=== PATIENT | female | born 1935 | race Caucasian/White ===

== ENCOUNTER 2017-02-20 06:50 | Emergency (ER) | payer MEDICARE ==
[~2017-02-20] VITALS: Ht 162.5 cm; Wt 90.7 kg
[~2017-02-20 06:50] MED LIST: ADVAIR 100/501 E1 INH; ADVAIR 250/501 EA; ADVAIR 250/501 EA INH; ALEVE220 MG PO; AMARYL4 MG PO; ANTIVERT/2525 MG PO; APRESOLINE25 MG PO; ASPIRIN81 M1 PO; ATENOLOL50 MG PO; AUGMENTIN 875875 MG PO; Aggrenox 25 MG-1 CER PO; BENTYL10 MG PO; BUSPAR5 MG PO; CALCIUM 600 W/V1 TAB PO; CARAFATE1 G1 PO; CIPRO250 MG PO; CIPRO500 MG PO; CIPROFLOXACIN500 MG PO; CLARITIN10 MG PO; CLINDAMYCIN150 MG PO; COLACE PO; COLACE100 MG PO; COREG6.25 MG PO; CORTISPORIN SUS10 ML OT; DARVOCET N 1001 TAB PO; DAYPRO600 M1 PO; DIFLUCAN150 MG PO; DOCUSATE SODIU100 M2 PO; DOXYCYCLINE100 M3 PO; DULERA 200 MCG8.8 GM IH; FERREX 150150 MG PO; FLEXERIL10 MG PO; FLUOXETINE20 M1 PO; FLUOXETINE20 MG PO; FUROSEMIDE20 MG PO; FUROSEMIDE40 MG PO; GABAPENTIN300 MG PO; GLUCOPHAGE1000 MG PO; GLUCOTROL10 MG PO; GLUCTESTSTRIP; GLYBURIDE5 MG PO; HYDRALAZINE HCL25 MG PO; HYDRALAZINE10 MG PO; HYDROCODONE BIT1 T11 PO; HYDROCORTISONE30 G2 T; Hydralazine Hyd25 MG PO; IMDUR30 MG PO; INSULATARD H100 U/ML SC; INSULIN; ISOSORBIDE DINI30 MG PO; KEFTAB500 MG PO; LANTUS100 U/ML SC; LASIX40 MG PO; LEVEMIR100 U/ML SC; LISINOPRIL/HCTZ1 TA3 PO; LISINOPRIL/HCTZ1 TA4 PO; LISINOPRIL5 MG PO; LORAZEPAM0.5 MG PO; LOSARTAN POTASS50 M1 PO; MACROBID100 M1 PO; METAMUCIL PO; METFORMIN HCL1000 MG PO; MICRO K10 MEQ PO; MICRONASE5 MG PO; MIDODRINE HCL5 M1 PO; MILLIPRED5 MG PO; MIRALAX17 GM/DOSE PO; NEURONTIN300 MG; NEURONTIN300 MG PO; NEXIUM40 MG PO; NORCO 325 MG-51 TAB PO; NOVOLIN R100 U/ML; NOVOLOG 70/30 M10 ML SC; NOVOLOG 70/30 SC; NOVOLOG FLEX100 U/ML SC; NOVOLOG MIX 70/10 ML SC; NYSTATIN CREAM15 GM T; OMEPRAZOLE20 MG PO; OXYCODONE HCL15 MG PO; PANTOPRAZOLE40 MG PO; POTASSIUM; PRAVACHOL20 MG PO; PRELONE15 MG/5 ML PO; PRILOSEC20 MG PO; PROTONIX TR40 M1 PO; PROZAC20 MG PO; RESTORIL30 MG PO; ROBAXIN750 MG PO; ROXICODONE5 MG PO; SIMVASTATIN20 MG PO; SONATA10 MG PO; SPIRIVA18 MCG IH; SYMBICORT1 AE1 INH; TENORMIN25 MG PO; TESSALON PERLE100 M1 PO; TESSALON PERLE200 MG PO; ULTRAM50 MG PO; VIBRAMYCIN100 MG PO; VICODIN 5/500 505 MG PO; VICODIN 500 MG-1 TAB PO; VITAMIN D33000 UNIT PO; WELLBUTRIN75 MG PO; XANAX0.25 MG PO; ZITHROMAX Z PA250 MG PO
[2017-02-20 07:40] LABS: BILIRUBIN NEGATIVE (NEGATIVE); BLOOD 1+ (NEGATIVE); CLARITY SL CLOUDY (CLEAR); COLOR YELLOW (YELLOW); GLUCOSE NEGATIVE (NEGATIVE); KETONE NEGATIVE (NEGATIVE); LEUKO ESTERASE NEGATIVE (NEGATIVE); NITRITE NEGATIVE (NEGATIVE); UROBILINOGEN 0.2 E.U./dl (0.2-1.0)
[2017-02-20 08:08] LABS: BACTERIA TRACE; RBC 16-20 rbc/hpf (0-2)
[2017-02-20 08:09] LABS: EPITHELIAL CELLS 16-20
== END 2017-02-20 09:27 | disposition home or self-care (01) ==
LOC: ED 06:50
PROVIDERS: Emergency Medicine
DX: S40.011A Contusion of right shoulder, initial encounter (principal); E11.65 Type 2 diabetes mellitus with hyperglycemia; E11.22 Type 2 diabetes mellitus with diabetic chronic kidney disease; I12.9 Hypertensive chronic kidney disease with stage 1 through stage 4 chronic kidney disease, or unspecified chronic kidney disease; N18.3 Chronic kidney disease, stage 3 (moderate); J44.9 Chronic obstructive pulmonary disease, unspecified; Z79.4 Long term (current) use of insulin; W18.39XA Other fall on same level, initial encounter; Y93.89 Activity, other specified; Y92.89 Other specified places as the place of occurrence of the external cause; Y99.8 Other external cause status

== ENCOUNTER 2017-03-06 00:57 | Inpatient (IN) | payer MEDICARE ==
[2017-03-06] VITALS (7 sets, daily range): BP systolic 164–192; BP diastolic 67–92
[~2017-03-06] VITALS: Ht 167.6 cm; Wt 81.0 kg
--- NOTE | ~2017-03-06 | WRIGHTHP ---
[place], [place] PATIENT HISTORY AND PHYSICAL EXAM NAME: JONO GARCIA [facility] #: [id number] UNIT #: [id number] ROOM: 515 DOCTOR: MADELYN MARTINEZ MD BIRTHDATE: [birth year] DOS: 03/06/2017 HISTORY OF PRESENT ILLNESS: The patient is an 81-year-old female sent over to the Emergency Department at [facility] for increased shortness of breath. She was found unresponsive and pale and diaphoretic with a blood sugar of 20. In the hospital, the patient woke up with treatment and on the chest x-ray she was found to have left lower lobe atelectasis and pneumonia and leukocytosis with white cell count 13,700 and she was recommended for admission and further management. After admission, the patient is more awake and alert and her breathing is improving. No complaints of chest pain. No other GI or urinary symptoms. REVIEW OF SYSTEMS: LUNGS: Some increasing shortness of breath. GASTROINTESTINAL: No nausea, vomiting, diarrhea or constipation. CARDIOVASCULAR: No chest pains or palpitations. FAMILY HISTORY: Noncontributory. HOME MEDICATIONS: Not known at this time. The patient used to take furosemide and Coreg, which have been continued from previous records. Nursing staff is going to call the patient's pharmacy when it opens and get the medication list. ALLERGIES: Known allergies to CEPHALOSPORINS. PHYSICAL EXAMINATION: GENERAL: Awake, alert, not a good historian, in visible distress, generalized weakness. HEENT AND NECK: Extraocular movements are intact. Sclerae are anicteric. Oral mucosa is moist and clean. No obvious facial weakness. Neck is supple without any lymphadenopathy. No thyromegaly. No JVD. No carotid arterial bruits. LUNGS: Clear to auscultation. No wheezing. No rhonchi. CARDIOVASCULAR SYSTEM: Heart rate is regular in rate and rhythm. S1 and S2 normally audible. No significant murmur or any other abnormal cardiac sounds. ABDOMEN: Soft, nontender. No obvious organomegaly. Bowel sounds are present. No obvious herniation. EXTREMITIES: Without significant cyanosis or edema. Warm to touch. CENTRAL NERVOUS SYSTEM: Alert and oriented x 3. Cranial nerves II-XII are intact. Speech is normal. The patient is able to move all extremities. Normal muscle strength. Deep tendon reflexes are equal on both sides. Plantars were downgoing. LABORATORY DATA: Blood sugar now 122, BUN and creatinine 45 and 1.7. White cell count of 14,000, hemoglobin 7.9. IMPRESSION: 1. The patient presenting with acute left lower lobe pneumonia with atelectasis and leukocytosis with mental status change. She is being treated with IV Zosyn, which she was given also in the Emergency Department. The patient appears to be improving. [place], [place] PATIENT HISTORY AND PHYSICAL EXAM [facility]: [id number] #: [id number] ROOM: [facility] DOCTOR: JUAN KRAUSE,MADELYN Palafox BIRTHDATE: [birth year] 2. Type 2 diabetes mellitus with acute hypoglycemia and mental status change. The patient's blood sugars to be monitored and she will be kept on a no concentrated sweet diet with sliding scale of regular insulin. 3. Chronic kidney disease stage 3B. Serum electrolytes, BUN and creatinine to be monitored. 4. Benign essential hypertension. Blood pressure is to be monitored and treated. We still do not have a complete list of her home medications. 5. Mixed hyperlipidemia, to be followed and treated. 6. Chronic adult failure to thrive with multiple falls and generalized weakness. MADELYN MARTINEZ MD CM:HISPHYS:PATIENT HISTORY AND PHYSICAL EXAMINATION 5 4 MADELYN MARTINEZ MD 03/06/17944 interface
--- NOTE | ~2017-03-06 | DS ---
[place], [place] DISCHARGE SUMMARY NAME: JONO GARCIA [facility] #: [id number] UNIT #: [id number] ROOM: 515 DOCTOR: MADELYN MARTINEZ MD BIRTHDATE: [birth year] DOS: 03/09/2017 DISCHARGE DIAGNOSES: 1. Acute hypoglycemia, resolved. 2. Type 2 diabetes mellitus. 3. Left lower lung atelectasis and pneumonia, treated. 4. Benign essential hypertension. 5. Mixed hyperlipidemia. 6. Adult failure to thrive with multiple falls and generalized weakness. 7. Very hard of hearing. 8. Diabetic nephropathy, stage 4. HOSPITAL COURSE: The patient presented to the Emergency Department unresponsive and diaphoretic with blood sugar of 20 and she was found to have a left lower lobe atelectasis and pneumonia with leukocytosis with white cell count of 13,700. The patient was admitted and treated with IV Zosyn and she is more awake and alert, but very hard of hearing. The patient appears to have achieved maximum benefit from this admission for discharge back to longterm today. 1. Type 2 diabetes mellitus with hypoglycemia. I stopped her Lantus insulin 60 units and her blood sugars have improved. I will send her back only on 20 units of Lantus insulin and she will be kept on no concentrated sweet diet. 2. Chronic kidney disease stage 4 and diabetic nephropathy, stable. 3. Mixed hyperlipidemia, followed and treated. 4. Benign essential hypertension. Blood pressure is being monitored and controlled. 5. Adult failure to thrive and recurrent falls. We are taking fall precautions. LABORATORY DATA: BUN and creatinine of 41 and 2.1 at discharge. Normal serum electrolytes. Hemoglobin 7.9 and stable. The patient has anemia of chronic disease and chronic kidney failure. DISCHARGE MANAGEMENT: Glimepiride 2 mg daily, gabapentin 300 mg at bedtime, simvastatin 20 mg a day, Imdur 30 mg a day, furosemide 60 mg a day, Lantus insulin 20 units subQ daily, hydralazine 100 mg b.i.d., Ferrex 150 mg daily, Carafate 1 gram b.i.d., Cymbalta 60 mg a day, Coreg 6.25 mg b.i.d., aspirin 81 mg a day, DuoNeb every 4 hours as needed, Vicodin 5/325 mg t.i.d. p.r.n. for pain, Augmentin 875 mg twice a day for 5 days, then to be stopped. [place], [place] DISCHARGE SUMMARY NAME: JONO GARCIA UNIT #: [id number] ROOM: [facility] DOCTOR: MADELYN MARTINEZ MD BIRTHDATE: [birth year] MADELYN MARTINEZ MD CM:DISCHARG 17 30 MADELYN MARTINEZ MD 03/09/172030 interface
--- NOTE | ~2017-03-06 | PR ---
[place], [place] PROGRESS NOTE [id number] UN[facility] #: [id number] ROOM: 515 DOCTOR: MADELYN MARTINEZ MD BIRTHDATE: [birth year] DOS: 03/08/2017 SUBJECTIVE: The patient says she is starting to feel much better. OBJECTIVE: GENERAL APPEARANCE: The patient is alert and oriented x 3, in no visible distress. VITAL SIGNS: Blood pressure 130/83, heart rate 87 beats, breathing 20 times per minute, temperature 98.7 degrees Fahrenheit. HEENT AND NECK: Exam within normal limits. CARDIOVASCULAR SYSTEM: Heart rate is regular in rate and rhythm. S1 and S2 normally audible. LUNGS: Clear to auscultation. ABDOMEN: Soft, nontender. No obvious organomegaly. Bowel sounds are present. EXTREMITIES: Without significant cyanosis or edema. IMPRESSION: 1. Hypoglycemia, resolved. Blood sugars are better controlled. Amaryl restarted. 2. Left lower lobe atelectasis and pneumonia, being treated with antibiotics. The patient is clinically improving. Blood sugars are now ranging between 76-280, being followed closely. 3. Benign essential hypertension, being treated. Blood pressure is being monitored and controlled. 4. Mixed hyperlipidemia, treated. 5. Chronic adult failure to thrive and multiple falls and generalized weakness. The patient has mentioned possible hospice consult. MADELYN MARTINEZ MD CM:PNTRANS [phone] MADELYN MARTINEZ MD 03/09/17 1130 interface
--- NOTE | ~2017-03-06 | PR ---
[place], [place] PROGRESS NOTE NAME: JONO GARCIA [facility] #: [id number] UNIT #: [id number] ROOM: 515 DOCTOR: CHARLES BATISTA MD BIRTHDATE: [birth year] DOS: 03/07/2017 SUBJECTIVE: The patient is doing fine without any complaints this morning. She did go down for a chest x-ray which did not show any new pathology. The patient denies having any fever, any chills. OBJECTIVE: VITAL SIGNS: Graphic trend shows a pressure 197/67, pulse of 73, respirations 18, temperature 97.7. LUNGS: Diminished breath sounds, clear. HEART: Regular. ABDOMEN: Obese, soft, nontender. EXTREMITIES: Without any edema. ASSESSMENT AND PLAN: 1. Hypoglycemia. The patient's blood sugars are in the high 100s, low dose Amaryl will be restarted. 2. Possibility of urinary tract infection. Urine culture is pending. 3. Left lower lobe atelectasis with leukocytosis, possible pneumonia underneath it. The patient is on antibiotics. The chest x-ray repeat is clearer, should be able to go home in the morning. CHARLES BATISTA MD CM:PNTRANS [id number] CHARLES BATISTA MD 03/07/17 1316 interface
--- NOTE | 2017-03-06 01:13 | NUR ---
PATIENT PLACED ON A BEDPAN BUT WAS UNABLE TO URINATE. WILL CONTINUE TO MONITOR.
[2017-03-06 01:22] LABS: BASO % 0.1 % (0.0-1.0); EOS # 0.1 10*3/uL (0.0-0.4); EOS % 0.9 % (1.0-4.0); HEMATOCRIT 24.9 % (37.0-47.0); HEMOGLOBIN 7.9 g/dl (12.0-16.0); LYMPH # 0.7 10*3/uL (1.3-4.4); LYMPH % 4.7 % (27.0-41.0); MEAN CELL VOLUME 89.6 fl (81.0-99.0); MEAN CORPUSCULAR HGB 28.4 pg (27.0-31.0); MEAN CORPUSCULAR HGB CONC 31.7 g/dl (33.0-37.0); MEAN PLATELET VOLUME 9.8 fl (9.6-12.3); MONO # 0.7 10*3/uL (0.1-1.0); MONO % 5.3 % (3.0-9.0); NEUT # 12.3 10*3/uL (2.3-7.9); NEUT % 88.6 % (47.0-73.0); PLATELET COUNT AUTOMATED 227 10*3/uL (130-400); RED BLOOD COUNT 2.78 10*6/uL (4.10-5.10); RED CELL DISTRI WIDTH 15.6 % (0-14.5); WHITE BLOOD COUNT 13.9 10*3/uL (4.8-10.8)
[2017-03-06 01:38] LABS: BILIRUBIN NEGATIVE (NEGATIVE); BLOOD TRACE-INTACT (NEGATIVE); COLOR YELLOW (YELLOW); GLUCOSE NEGATIVE (NEGATIVE); KETONE NEGATIVE (NEGATIVE); LEUKO ESTERASE NEGATIVE (NEGATIVE); NITRITE NEGATIVE (NEGATIVE); PH 6.5 (5.0-9.0); UROBILINOGEN 0.2 E.U./dl (0.2-1.0)
[2017-03-06 01:40] LABS: ALBUMIN 2.5 gm/dl (3.1-4.5); ALKALINE PHOSPHATASE 91 U/L (45-117); BUN 45 mg/dl (7-24); CHLORIDE 98 mmol/L (98-107); CREATININE 1.75 mg/dL (0.55-1.02); POTASSIUM 4.2 mmol/L (3.5-5.1); SGOT/AST 17 IU/L (3-35); SGPT/ALT 21 U/L (12-78); SODIUM 136 mmol/L (136-145); TOTAL PROTEIN 6.8 gm/dL (6.4-8.2)
[2017-03-06 01:42] LABS: TROPONIN I < 0.015 ng/ml (<0.045)
[2017-03-06 01:44] LABS: CLARITY SL CLOUDY (CLEAR); EPITHELIAL CELLS 45-50
[2017-03-06 01:45] LABS: BACTERIA TRACE
--- NOTE | 2017-03-06 02:45 | NUR ---
IV IN LEFT HAND IS PAINFUL DURING SLOW IV PUSH. IV SITE DISCONTINUED.
--- NOTE | 2017-03-06 02:54 | NUR ---
2X IV ATTEMPT WITH NO SUCCESS. ANOTHER NURSE IS ATTEMPTING IV AT THIS TIME.
--- NOTE | 2017-03-06 03:20 | NUR ---
2 NURSES UNABLE TO GET IV ACCESS.
--- NOTE | 2017-03-06 03:24 | NUR ---
[facility] NURSE WILL COME DOWN AND ATTEMPT IV ACCESS.
--- NOTE | 2017-03-06 04:56 | NUR ---
Time: A 81 year old F admitted to 5E under services of DR. JUAN KRAUSE,MADELYN Kat Pt. arrived via bed from ER. Chief complaint: HYPOGLYCEMIA. STACEY KENT
--- NOTE | 2017-03-06 05:06 | NUR ---
DR. MARTINEZ MADE AWARE OF NEW PT. NEW ORDERS RECIEVED. WILL CONINUE TO MONITOR PT
--- NOTE | 2017-03-06 08:30 | NUR ---
WELLNESS AMBASSADOR VS. STATES SHE LIVES AT [facility] AND PLANS TO RETURN. WILL CHECK WITH [facility] FOR RETURN NEEDS.
--- NOTE | 2017-03-06 10:30 | NUR ---
DR MOFFETT CALLED TO REPORT MED REC HAD BEEN VERIFIED.
[2017-03-06] MEDS ORDERED: PRAVACHOL40 MG PO (11:10)
[2017-03-06] MEDS ORDERED: ASPIR LOW81 MG PO (11:10)
[2017-03-06] MEDS ORDERED: DOCUSATE SODIU100 M2 PO (11:11)
[2017-03-06] MEDS ORDERED: CYMBALTA60 MG PO (11:12)
[2017-03-06] MEDS ORDERED: LASIX40 MG PO (11:13)
[2017-03-06] MEDS ORDERED: HYDRALAZINE HC100 MG PO (11:14)
[2017-03-06] MEDS ORDERED: K-TAB10 MEQ PO (11:14)
[2017-03-06] MEDS ORDERED: LANTUS SOL100 UNIT/1 SC (11:17)
[2017-03-06] MEDS ORDERED: HYDROCODON-ACE1 EACH PO (11:18)
[2017-03-06] MEDS ORDERED: HUMALOG100 UNIT/1 SQ (11:26)
--- NOTE | 2017-03-06 11:40 | NUR ---
PT HAD BLOOD SUGAR OF 56, PT GIVEN ORANGE JUICE AND DUONG CRACKERS.
--- NOTE | 2017-03-06 11:55 | NUR ---
BLOOD SUGAR RECHECKED AT 55. 25 GM/50 ML DEXTROSE GIVEN IV. PATIENT ALSO HAD HER LUNCH IN FRONT OF HER AT THIS TIME.
--- NOTE | 2017-03-06 13:33 | NUR ---
Patient is LTC at [facility] and can return when medically stable for discharge.
--- NOTE | 2017-03-06 14:46 | NUR ---
PHYSICAL THERAPY PAtient too fatigued for PT this date. Caase discussed with nurse and paling agrees. PAtient is dyspneic at rest. Will check patients status tomorrow. Thank you for this referral. Jennifer Hale,PT
--- NOTE | 2017-03-06 16:30 | NUR ---
BLOOD SUGAR 188, INSULIN HELD.
--- NOTE | 2017-03-06 18:00 | NUR ---
BLOOD SUGAR 176, INSULIN HELD.
[2017-03-07] VITALS: BP 170/88
[2017-03-07 06:46] LABS: CREATININE 1.84 mg/dL (0.55-1.02); POTASSIUM 4.2 mmol/L (3.5-5.1)
[2017-03-07 06:48] LABS: BASO % 0.3 % (0.0-1.0); EOS # 0.2 10*3/uL (0.0-0.4); EOS % 2.1 % (1.0-4.0); HEMATOCRIT 25.5 % (37.0-47.0); HEMOGLOBIN 8.2 g/dl (12.0-16.0); LYMPH # 1.2 10*3/uL (1.3-4.4); LYMPH % 12.5 % (27.0-41.0); MEAN CELL VOLUME 88.2 fl (81.0-99.0); MEAN CORPUSCULAR HGB 28.4 pg (27.0-31.0); MEAN CORPUSCULAR HGB CONC 32.2 g/dl (33.0-37.0); MEAN PLATELET VOLUME 9.6 fl (9.6-12.3); MONO # 1.1 10*3/uL (0.1-1.0); MONO % 11.4 % (3.0-9.0); NEUT # 7.1 10*3/uL (2.3-7.9); NEUT % 73.3 % (47.0-73.0); PLATELET COUNT AUTOMATED 232 10*3/uL (130-400); RED BLOOD COUNT 2.89 10*6/uL (4.10-5.10); RED CELL DISTRI WIDTH 15.2 % (0-14.5); WHITE BLOOD COUNT 9.7 10*3/uL (4.8-10.8)
[2017-03-07 08:00] VITALS: BP 197/69
--- NOTE | 2017-03-07 11:10 | NUR ---
PRN PAIN MED GIVEN FOR PT REPORT 4/10 HEADACHE.
[2017-03-07 12:00] VITALS: BP 188/74
--- NOTE | 2017-03-07 12:10 | NUR ---
PRN PAIN MED EFFECTIVE, PT DENIES PAIN.
--- NOTE | 2017-03-07 14:47 | NUR ---
PHYSICAL THERAPY Initial PT eval done at bedside this morning. Mod level complexity eval #87846. Please see eval for status. POC to include pt ed; ther ex; balance/transfer/gait training with eventual dc back to alf. Maegan Gupta, PT
--- NOTE | 2017-03-07 15:12 | NUR ---
faxed progress notes and updates to Tonya at [facility] for review per her request. Patient is LTC and can return when medically stable for discharge.
[2017-03-07 16:00] VITALS: BP 179/67
--- NOTE | 2017-03-07 19:43 | NUR ---
PATIENT IS RESTING IN BED. PATIENT IS [place] AND WAS CONFUSED OCCASIONALLY ON ASSESSMENT. PATIENT WAS A&OX2 AND AMBULATORY +1 ASSIST. PATIENT DENIES ANY PAIN, DISCOMFORT, OR SOB ON ASSESSMENT. PATIENT IS RECEIVING 2LPM VIA NC. PATIENT HAS NO FURTHER REQUESTS AT THIS TIME, CALL LIGHT IS WITHIN REACH, HOB ELEVATED. SEE ASSESSMENT.
[2017-03-07 20:00] VITALS: BP 175/68
[2017-03-08] VITALS: BP 158/73
--- NOTE | 2017-03-08 02:29 | NUR ---
PATIENT IS RESTING IN BED ON HER RIGHT SIDE. PATIENT IS ALERT AND ORIENTED TO PERSON AND PLACE. PATIENT IS [place], BUT DOES RESPOND APPROPRIATELY. PATIENT DENIES ANY PAIN, DISCOMFORT OR SOB AT THIS TIME. PATIENT IS RECEIVING 2LPM VIA NC. PATIENT HAS NO FURTHER REQUESTS AT THIS TIME. CALL LIGHT IS WITHIN REACH. SEE ASSESSMENT.
--- NOTE | 2017-03-08 05:50 | NUR ---
PATIENT GIVEN NORCO PER PT REQUEST FOR A HEADACHE RATED A 6/10. WILL CONTINUE TO MONITOR AND REASSESS, CALL LIGHT IS WITHIN REACH.
[2017-03-08 06:08] LABS: BASO # 0.1 10*3/uL (0.0-0.1); BASO % 0.6 % (0.0-1.0); EOS # 0.2 10*3/uL (0.0-0.4); EOS % 2.1 % (1.0-4.0); HEMATOCRIT 28.8 % (37.0-47.0); HEMOGLOBIN 8.8 g/dl (12.0-16.0); LYMPH # 1.6 10*3/uL (1.3-4.4); LYMPH % 15.3 % (27.0-41.0); MEAN CELL VOLUME 90.3 fl (81.0-99.0); MEAN CORPUSCULAR HGB 27.6 pg (27.0-31.0); MEAN CORPUSCULAR HGB CONC 30.6 g/dl (33.0-37.0); MEAN PLATELET VOLUME 9.4 fl (9.6-12.3); MONO # 1.1 10*3/uL (0.1-1.0); MONO % 10.7 % (3.0-9.0); NEUT # 7.2 10*3/uL (2.3-7.9); PLATELET COUNT AUTOMATED 275 10*3/uL (130-400); RED BLOOD COUNT 3.19 10*6/uL (4.10-5.10); RED CELL DISTRI WIDTH 15.3 % (0-14.5); WHITE BLOOD COUNT 10.1 10*3/uL (4.8-10.8)
[2017-03-08 06:35] LABS: CREATININE 2.12 mg/dL (0.55-1.02); POTASSIUM 4.3 mmol/L (3.5-5.1)
--- NOTE | 2017-03-08 07:48 | NUR ---
Shift chart check completed.
--- NOTE | 2017-03-08 07:49 | NUR ---
PT STATES NORCO EFFECTIVE FOR HEADACHE.
[2017-03-08 08:00] VITALS: BP 143/68
[2017-03-08 12:00] VITALS: BP 130/83
--- NOTE | 2017-03-08 15:49 | NUR ---
ASSUMED CARE OF PATIENT. NO NEEDS NOTED AT THIS TIME. REQUESTING BACK ON BIPAP.
[2017-03-08 16:00] VITALS: BP 170/71
--- NOTE | 2017-03-08 19:30 | NUR ---
PATIENT IS AWAKE AND ALERT IN BED ON THEIR LEFT SIDE. PATIENT HAS OCCASIONAL CONFUSION TO LOCATION AND IS [place] UPON ASSESSMENT. PATIENT DENIES ANY PAIN, DISCOMFORT, OR SOB. PATIENT WAS WEENED OFF OF OXYGEN AND IS NOW RA AT 93% PER PULSE OX. PATIENT CAN AMBULATE WITH WALKER +1 ASSIST. BED ALARM ACTIVATED. NO FURTHER REQUESTS AT THIS TIME. CALL LIGHT IS WITHIN REACH. SEE ASSESSMENT
[2017-03-08 20:00] VITALS: BP 185/66
[2017-03-09 06:22] LABS: BASO # 0.1 10*3/uL (0.0-0.1); BASO % 0.6 % (0.0-1.0); EOS # 0.2 10*3/uL (0.0-0.4); EOS % 1.9 % (1.0-4.0); HEMATOCRIT 25.5 % (37.0-47.0); HEMOGLOBIN 7.9 g/dl (12.0-16.0); LYMPH # 1.6 10*3/uL (1.3-4.4); LYMPH % 15.3 % (27.0-41.0); MEAN CELL VOLUME 88.9 fl (81.0-99.0); MEAN CORPUSCULAR HGB 27.5 pg (27.0-31.0); MEAN PLATELET VOLUME 9.8 fl (9.6-12.3); MONO % 9.8 % (3.0-9.0); NEUT # 7.5 10*3/uL (2.3-7.9); PLATELET COUNT AUTOMATED 259 10*3/uL (130-400); RED BLOOD COUNT 2.87 10*6/uL (4.10-5.10); RED CELL DISTRI WIDTH 15.4 % (0-14.5); WHITE BLOOD COUNT 10.4 10*3/uL (4.8-10.8)
[2017-03-09 06:38] LABS: CREATININE 2.13 mg/dL (0.55-1.02); POTASSIUM 4.1 mmol/L (3.5-5.1)
--- NOTE | 2017-03-09 07:24 | NUR ---
Shift chart check completed.
[2017-03-09 08:00] VITALS: BP 158/62
[2017-03-09 12:00] VITALS: BP 153/59
[2017-03-09 16:00] VITALS: BP 168/68
[2017-03-09] MEDS ORDERED: AUGMENTIN 875-875 MG PO (16:15)
--- NOTE | 2017-03-09 17:18 | NUR ---
REPORT CALLED TO [facility]. IV IN LEFT ARM REMOVED, DRESSING APPLIED. PT AWARE OF DISCHARGE TONIGHT. ATTEMPTED TO CALL SON TO NOTIFY AND LINE HAS BEEN BUSY, WILL ATTEMPT TO NOTIFY PRIOR TO DISCHARGE
--- NOTE | 2017-03-09 17:44 | NUR ---
DISCHARGE INSTRUCTIONS SENT WITH PATIENT TO [facility]. PT TOO HARD OF HEARING TO COMPLETLY UNDERSTAND DISCHARGE INSTRUCTIONS. AWAIT AMBULANCE TO TRANSPORT PATIENT TO [facility] AT 1800
--- NOTE | 2017-03-09 18:00 | NUR ---
RUDY PICKED PATIENT UP FOR TRANSFER TO [facility]
== END 2017-03-09 16:00 | disposition other institution (70) | DRG 637 ==
LOC: ED 00:57 → EDHOLD 02:17 → 5E 02:17
PROVIDERS: Student in an Organized Health Care Education/Training Program; ADMIT Internal Medicine
DX: E11.649 Type 2 diabetes mellitus with hypoglycemia without coma (principal); J18.1 Lobar pneumonia, unspecified organism; N18.4 Chronic kidney disease, stage 4 (severe); J44.0 Chronic obstructive pulmonary disease with (acute) lower respiratory infection; E11.21 Type 2 diabetes mellitus with diabetic nephropathy; J98.11 Atelectasis; E11.22 Type 2 diabetes mellitus with diabetic chronic kidney disease; I12.9 Hypertensive chronic kidney disease with stage 1 through stage 4 chronic kidney disease, or unspecified chronic kidney disease; Z51.5 Encounter for palliative care; E78.2 Mixed hyperlipidemia; Z66 Do not resuscitate; R62.7 Adult failure to thrive; Z91.81 History of falling; Z88.1 Allergy status to other antibiotic agents; Z87.01 Personal history of pneumonia (recurrent); Z87.440 Personal history of urinary (tract) infections; Z90.49 Acquired absence of other specified parts of digestive tract; Z79.899 Other long term (current) drug therapy; Z79.82 Long term (current) use of aspirin; Z79.84 Long term (current) use of oral hypoglycemic drugs; Z79.4 Long term (current) use of insulin

== ENCOUNTER 2017-07-10 14:58 | Inpatient (IN) | payer MEDICARE ==
[~2017-07-10] VITALS: Ht 157.4 cm; Wt 81.6 kg
--- NOTE | ~2017-07-10 | PR ---
[place], [place] PROGRESS NOTE NAME: JONO GARCIA [facility] #: [id number] UNIT #: [id number] ROOM: 505 DOCTOR: SEAN RBUSH DPM BIRTHDATE: [birth year] DOS: 07/18/2017 The patient presently admitted under the care of Dr. Maisha Chang and undergoing treatment for shortness of breath. Blood pressure 154/98, heart rate 76 beats per minute, breathing 18 times per minute, temperature 98.2 degrees Fahrenheit. Standard exam except for generalized weakness. The patient is also very hard of hearing and obesity. IMPRESSION: 1. Mild trilobular pneumonia, being treated with antibiotics. Dr. Finch, recovery analyst, performed a bronchoscopy this morning. 2. Blood cultures positive for Staphylococcus hominis, but negative and repeat cultures. The patient was treated with vancomycin intravenously. 3. Type 2 diabetes mellitus. Blood sugars were elevated, but being treated and they are being monitored. SEAN BRUSH DPM CM:PNTRANS [phone] SEAN BRUSH DPM 07/18/17 2344 interface
--- NOTE | ~2017-07-10 | PR ---
[place], [place] PROGRESS NOTE NAME: JONO GARCIA UNIT #: [id number] ROOM: 505 DOCTOR: GASTON HOUGH MD BIRTHDATE: [birth year] DOS: 07/20/2017 SUBJECTIVE: The patient noted comfortable at this time, resting on the bed. The coughing has been improving progressively. There were symptoms of chest pain. The patient was ordered a chest x-ray, PA and lateral view, but refusing to have the x-ray done for the patient, PA lateral view. She has been sitting with the family member this morning on the chair for the patient and communicating with them well. The vital signs for the patient she had not reported any symptoms of coughing or sputum expectoration at this time. There are symptoms of chest pain. OBJECTIVE: VITAL SIGNS: For the patient which are recorded showed normal temperature, respiratory rate 18, heart rate 69-78, blood pressure 156/60. The pulse oxygen saturation on 2.5 liters nasal cannula, 1 liter was 95% saturation. HEENT: Showed no new change. Hard of hearing. CARDIOVASCULAR: S1, S2 is audible. LUNGS:. The patient was noted without any wheeze or crackle at the present time. ABDOMEN: Soft, nontender. EXTREMITIES: Without any acute edema. LABORATORY DATA: Cultures of the bronchial washing shows a normal hari. Chest x-ray that was done this morning, the patient was reviewed, shows continued improvement of the infiltration of the lungs bilaterally. IMPRESSION: 1. The patient with resolving acute respiratory failure. The patient has acute pneumonia with current medical management. ____ debility noted. 2. Senile hearing loss. PLAN OF MANAGEMENT: No changes in the plan of care for the patient at this time will be needed. Physical therapy, occupation therapy. The patient would be suggested about group home facility placement at the present time. [place], [place] PROGRESS NOTE NAME: JONO GARCIA UNIT #: [id number] ROOM: 505 DOCTOR: GASTON HOUGH MD BIRTHDATE: [birth year] GASTON LENZ MD CM:PNTRANS [phone] GASTON FREY MD 07/21/17 0506 interface
--- NOTE | ~2017-07-10 | PR ---
[place], [place] PROGRESS NOTE [id number] #: [id number] ROOM: 505 DOCTOR: CHARLES BATISTA MD BIRTHDATE: [birth year] DOS: SUBJECTIVE: The patient is sleeping in bed, woke up and did answer questions appropriately. She appeared to be short of breath and with audible rhonchi. OBJECTIVE: VITAL SIGNS: Graphic trend shows a pressure of 155/85, pulse of 75, respirations 20, temperature 98. LUNGS: Diminished breath sounds, scattered wheezes and rhonchi. HEART: Regular. ABDOMEN: Obese. EXTREMITIES: Without any edema. LABORATORY DATA: Sputum culture, normal hari. Repeat blood cultures have come back negative. Chest x-ray shows multilobar pneumonia without much improvement and small right pleural effusion. ASSESSMENT AND PLAN: 1. Multilobar pneumonia on IV antibiotics without much improvement over the last several days. Dr. Finch was informed for possible bronchoscopy to get a better culture. 2. Staph hominis in the blood. This appears to have cleared since the repeat blood cultures have been negative, hopefully discontinue vancomycin soon. 3. Type 2 diabetes mellitus, insulin-dependent. Blood sugars are on the high side. We will continue current medications right now. CHARLES BATISTA MD CM:PNTRANS 9 7 CHARLES BATISTA MD 07/17/17916 interface
--- NOTE | ~2017-07-10 | PR ---
[place], [place] PROGRESS NOTE NAME: JONO GARCIA [facility] #: [id number] UNIT #: [id number] ROOM: 505 DOCTOR: MADELYN MARTINEZ MD BIRTHDATE: [birth year] DOS: 07/20/2017 SUBJECTIVE: The patient is unable to walk, otherwise she is feeling better. OBJECTIVE: VITAL SIGNS: Blood pressure 154/84, heart rate of 65 beats per minute, breathing 18 times per minute, afebrile. IMPRESSION AND PLAN: 1. The patient with acute exacerbation of chronic obstructive pulmonary disease, increased shortness of breath, is being treated. Dr. Finch is also following. 2. Bilateral lower lobe infiltrates and pneumonia, being treated with antibiotics, clinically improving. 3. Old age and adult failure to thrive. The patient is unable to walk properly, is undergoing physical therapy and waiting for transfer to rehabilitation. 4. Type 2 diabetes mellitus. Blood sugars are being monitored and treated. 5. Staphylococcus hominis in blood cultures, cleared after treatment with vancomycin. MADELYN MARTINEZ MD CM:PNTRANS [phone] MADELYN MARTINEZ MD 07/20/17 1905 interface
--- NOTE | ~2017-07-10 | PR ---
[place], [place] PROGRESS NOTE NAME: JONO GARCIA UNIT #: [id number] ROOM: 505 DOCTOR: GASTON HOUGH MD BIRTHDATE: [birth year] DOS: 07/19/2017 PULMONARY PROGRESS NOTE SUBJECTIVE: The patient has been noted comfortable at this time. Bronchoscopy done yesterday with reduction in symptoms of shortness of breath was noted. The patient has not been noted symptoms of chest pain or any hemoptysis. Denies symptoms of abdominal pain. The communication of the patient noted limited because of the patient's hearing loss. Senile hearing loss which was partial. OBJECTIVE: VITAL SIGNS: Normal temperature, respiratory rate 20, heart rate 64, blood pressure 144/84. The pulse oxygen saturation on 2.5 liters cannula 93% saturation recorded. HEENT: No acute change. NECK: Supple. CARDIOVASCULAR: S1, S2 audible. LUNGS: Noted with moderate decreased breath sounds, no wheezing or crackles. ABDOMEN: Soft, nontender. EXTREMITIES: Without any acute edema. LABORATORY DATA: The culture of the bronchial washing noted normal hari. Gram stain, moderate white blood cell, few epithelial cells, rare gram-positive cocci in pair and the gram-positive bacilli. IMPRESSION: The patient who has been currently noted with acute pneumonia for the patient with acute exacerbation of chronic obstructive pulmonary disease and acute bronchitis reduction and improvement of the respiratory symptoms were noted with current medical management. Culture of the bronchial washing was pending. PLAN OF TREATMENT: Obtain a chest x-ray tomorrow morning for the patient for the reassessment of improvement in the pneumonia, pulmonary infiltration. In the meantime, the patient will be continue all other therapy, plan of management and care. Other additional treatment changes to be made for this patient based on the progression of the illness. [place], [place] PROGRESS NOTE NAME: JONO GARCIA UNIT #: [id number] ROOM: 505 DOCTOR: GASTON HOUGH MD BIRTHDATE: [birth year] GASTON LENZ MD CM:PNTRANS [phone] GASTON FREY MD 07/19/172020 interface
--- NOTE | ~2017-07-10 | PR ---
[place], [place] PROGRESS NOTE NAME: JONO GARCIA [facility] #: [id number] UNIT #: [id number] ROOM: 505 DOCTOR: DELFIN FERY MD,GASTON BIRTHDATE: [birth year] DOS: 07/21/2017 SUBJECTIVE: The patient noted comfortable at this time, resting on the bed without any acute distress. There were no symptoms of coughing noted. She has been noted chronic senile hearing loss. OBJECTIVE: VITAL SIGNS: For the patient which has been recorded shows normal temperature, respiratory rate 20, heart rate 68, blood pressure 162/95-154/48. Pulse oxygen saturation on 1 liter nasal cannula 95% saturation. HEENT: Examination shows head was atraumatic. Eyes nonicterus. NECK: Supple. CARDIOVASCULAR: S1, S2 audible. LUNGS: The patient was noted without any wheezing or crackles at this time. ABDOMEN: Soft, nontender. EXTREMITIES: Without any acute edema. IMPRESSION: 1. The patient with resolving pulmonary infiltration bilaterally with marked improvement in the respiratory status. The patient has been continued progressively current medical management 2. Acute respiratory failure. The patient has been improving progressively. PLAN OF TREATMENT: The patient could be discharged to [facility] facility. No further intervention or treatment at this time will be necessary. Continue supportive therapy, plan of management and care plan. GASTON LENZ MD CM:PNTRANS [phone] GASTON FREY MD 07/22/17 2006 interface
--- NOTE | ~2017-07-10 | EKG ---
[place], [place] ELECTROCARDIOGRAM REPORT NAME: JONO GARCIA UNIT #: [id number] ROOM: [facility] DOCTOR: DELFIN FREY MD,GASTON BIRTHDATE: [birth year] DOS: 07/17/2017 Electrocardiogram was done on the patient on 07/17/2017 at 2:49 p.m. FINDINGS: Normal sinus rhythm noted. Heart rate of 74 beats per minute. Mild prolongation of the QT interval noted. The T-wave also noted mildly peaked for this patient in the chest leads. GASTON LENZ MD CM:EKGRPT:ELECTROCARDIOGRAM REPORT [id number] GASTON FREY MD
--- NOTE | ~2017-07-10 | PR ---
[place], [place] PROGRESS NOTE [id number] #: [id number] ROOM: 505 DOCTOR: CHARLES BATISTA MD BIRTHDATE: [birth year] DOS: 07/14/2017 SUBJECTIVE: The patient is doing fine without any complaint. She is awake and alert and oriented this morning. No longer lethargic. OBJECTIVE: VITAL SIGNS: Graphic trend shows blood pressure of 167/58, pulse of 80, respirations 20, temperature 98.1. LUNGS: Diminished breath sounds. No wheezes, rales or rhonchi heard. HEART: Regular. ABDOMEN: Soft. EXTREMITIES: Without any edema. ASSESSMENT AND PLAN: 1. Acute multilobar pneumonia, on IV antibiotics. Blood culture Is most likely a contaminant. We will repeat again today. A PICC line will be placed and consider IV antibiotics at the senior living. 2. Hypoxic respiratory failure, going to be on oxygen supplementation at the senior living. 3. Type 2 diabetes mellitus, insulin-dependent, controlled. CHARLES BATISTA MD CM:PNTRANS [phone] CHARLES BATISTA MD 07/14/17 1450 interface
--- NOTE | ~2017-07-10 | PR ---
[place], [place] PROGRESS NOTE NAME: [facility] [id number] UNIT #: [id number] ROOM: 505 DOCTOR: CHARLES BATISTA MD BIRTHDATE: [birth year] DOS: 07/15/2017 SUBJECTIVE: The patient is sitting in a chair and sleeping, feels okay, does not have any new complaints. OBJECTIVE: VITAL SIGNS: Graphic trend shows a pressure 170/82, pulse of 60, respirations 20, temperature 97.7. LUNGS: Diminished breath sounds, clear this morning. HEART: Regular. ABDOMEN: Obese, soft. EXTREMITIES: Without any edema. ASSESSMENT AND PLAN: 1. Multilobar pneumonia, on intravenous antibiotics. 2. Staphylococcus hominis of the blood, on again intravenous vancomycin. The patient to have repeat blood cultures to see whether it is clearing. The peripherally inserted central catheter line will be placed and we will make arrangements for her to go back to intermediate. 3. Benign hypertension, poorly controlled. Clonidine was added. CHARLES BATISTA MD CM:PNTRANS [id number] CHARLES BATISTA MD 07/15/17 0843 interface
--- NOTE | ~2017-07-10 | PR ---
[place], [place] PROGRESS NOTE [id number] UNIT #: [id number] ROOM: 505 DOCTOR: CHARLES BATISTA MD BIRTHDATE: [birth year] DOS: SUBJECTIVE: The patient seems obtunded, lethargic, did not respond to call. She would not open her eyes. Earlier during the night, she was doing fine. OBJECTIVE: VITAL SIGNS: Blood pressure is 168/70, pulse of 88, respirations 22, temperature 98.5. LUNGS: Diminished breath sounds. HEART: Regular. ABDOMEN: Obese. EXTREMITIES: Without any edema. Again, did not respond to call. On sternal rub, she just kept pushing her hands away and would not open her eyes and respond properly. ASSESSMENT AND PLAN: 1. Change in mental status. A CT of the head will be ordered today. 2. Hypercapnic respiratory failure with acidosis noted on the blood work. So, the patient will be placed on BiPAP, as nursing staff did not take any pain medications and anxiety medications during the night. 3. Multilobar pneumonia with sepsis. One blood culture did grow gram-positive cocci in pairs and chains. The second blood culture did not grow anything, so this could be a contaminant, but she is already on antibiotics well covered. 4. Type 2 diabetes mellitus. Blood sugar was 167 this morning at 7 o'clock. CHARLES BATISTA MD CM:PNTRANS [id number] [id number] CHARLES BATISTA MD 07/13/17 1358 interface
--- NOTE | ~2017-07-10 | PR ---
[place], [place] PROGRESS NOTE NAME: JONO GARCIA [facility] #: [id number] UNIT #: [id number] ROOM: 505 DOCTOR: CHARLES BATISTA MD BIRTHDATE: [birth year] DOS: 07/12/2017 SUBJECTIVE: The patient is coughing up brownish sputum this morning. She does not otherwise have any complaints. OBJECTIVE: VITAL SIGNS: Blood pressure is 150/62, pulse of 85, respirations 18, temperature 98.7. LUNGS: Diminished breath sounds, a few scattered wheezes. HEART: Regular. ABDOMEN: Obese. EXTREMITIES: Without any edema. CT of the chest shows acute multilobar pneumonia. Blood culture shows gram-positive cocci in pairs and clusters. We do not have any identification, possibly strep pneumonia. ASSESSMENT AND PLAN: 1. Multilobar pneumonia on IV antibiotics, possible strep pneumonia. Awaiting blood culture report. Sputum culture will be sent today. 2. Sepsis with hypotension. Pressures have improved and have normalized. 3. Chronic renal failure, stage 4 with acute kidney injury from acute tubular necrosis from hypotension. IV fluids were given. I will repeat the labs again tomorrow. We will discontinue IV fluids. CHARLES BATISTA MD CM:PNTRANS 0800 [id number] CHARLES BATISTA MD 07/12/17 6860 interface
--- NOTE | ~2017-07-10 | PR ---
[place], [place] PROGRESS NOTE NAME: JONO GARCIA UNIT #: [id number] ROOM: 505 DOCTOR: GASTON HOUGH MD BIRTHDATE: [birth year] DOS: 07/18/2017 SUBJECTIVE: She has been n.p.o. past midnight. Bronchoscopy was planned to be done today. Coughing has been noted, seemed as persistent and unchanged. Denies symptoms of hemoptysis. Denies symptoms of nausea or vomiting. The patient has not reported any symptoms of abdominal pain or dizziness. Communication verbally was noted limited. REVIEW OF SYSTEMS: Completed for this patient, otherwise noted negative. OBJECTIVE: VITAL SIGNS: Recorded this morning normal temperature, respiratory rate of 20, heart rate 85, blood pressure 150/96 this morning. Pulse oxygen saturation on 2 liters nasal cannula 95% saturation. HEENT: Partial hearing loss. NECK: Supple. CARDIOVASCULAR: S1, S2 is audible. LUNGS: Noted moderate decreased breath sounds in the lungs bilaterally. Scattered crackles. There was no wheezing. ABDOMEN: Soft with moderate obesity. EXTREMITIES: Without any acute edema. SKIN: No lesions or rashes. MUSCULOSKELETAL: Without any acute deformities. CENTRAL NERVOUS SYSTEM: Noted intact. LABORATORY DATA: Vancomycin trough level noted 21.7 mildly about the therapeutic range. The blood culture was noted without any bacterial growths. IMPRESSION: 1. The patient with bilateral pulmonary infiltration, which has been noted with ongoing acute exacerbation of chronic obstructive pulmonary disease as well. For bronchoscopy, nonproductive cough still remains persistent as well. 2. The patient with acute hypercapnic respiratory failure as well. PLAN OF TREATMENT: Continue antibiotics, bronchodilators, and oxygen supplementation. No changes in the treatment majorly will be needed. Modification of the antibiotic, deescalation or if changes to be done after the bronchoscopy. In the meantime, continue other supportive therapy. Plan of management, care to titrate oxygen supplementation, maintain saturation 90% or greater. Continue bronchodilators administration and other supportive plan of management and therapies. [place], [place] PROGRESS NOTE NAME: JONO GARCIA UNIT #: [id number] ROOM: 505 DOCTOR: GASTON HOUGH MD BIRTHDATE: [birth year] GASTON LENZ MD CM:PNTRANS 1233 GASTON FREY MD 07/19/17 0138 interface
--- NOTE | ~2017-07-10 | DS ---
[place], [place] DISCHARGE SUMMARY NAME: JONO GARCIA [facility] #: [id number] UNIT #: [id number] ROOM: 505 DOCTOR: CHARLES BATISTA MD BIRTHDATE: [birth year] DOS: 07/21/2017 DIAGNOSES: 1. Acute multilobar pneumonia. 2. Interstitial lung disease with pulmonary fibrosis. 3. Chronic diastolic dysfunction. 4. Sepsis with Staphylococcus hominis of the blood, possible contaminant. Repeat blood cultures negative. 5. Adult failure to thrive. 6. Type 2 diabetes mellitus, insulin-dependent. 7. Benign hypertension, controlled. 8. Chronic kidney disease. MEDICATIONS ON DISCHARGE: Spiriva 1 puff at bedtime, Bentyl 10 q.i.d., breathing treatments with DuoNeb q. 4, Simvastatin 40 daily, hydralazine 100 mg twice a day, Coreg 6.25 twice a day, aspirin 81 mg daily, gabapentin 300 at bedtime, duloxetine 60 at bedtime, Remeron 7.5 daily, potassium 10 daily, Lasix 60 mg daily, Mucinex 600 mg p.o. b.i.d., Colace 100 mg b.i.d., glycerin suppository daily p.r.n., Fleets Enema p.r.n., Lantus insulin 35 units daily and coverage scale, isosorbide 30 mg daily, Norvasc 5 mg daily and doxycycline 100 mg twice a day for 7 days. HOSPITAL COURSE: This patient is very well known to us. She comes in after 1 week treatment of antibiotics as an outpatient with continued shortness of breath and cough. She was sent into the Emergency Room after being hypotensive at the snf. She was admitted with diagnosis of dehydration. She developed acute kidney injury with the chronic kidney disease. The patient was admitted, was placed on IV antibiotics and IV fluids. Cultures were sent. Blood cultures do grew Staphylococcus hominis, which most likely was a contaminant. Repeat blood cultures have come back negative. The patient's CT scan of the chest was done, which showed bilateral multilobar pneumonia. Dr. Finch was consulted with continued shortness of breath. The patient was taken for a bronchoscopy. Bronch cultures have come back negative. AFB smears were negative. Again, the patient's breathing has improved, but occasionally she does get short of breath and rhonchorous, most likely from underlying pulmonary fibrosis. The patient is overall stable and improved. The PICC line was placed, which can be removed and can be discharged back to the snf. Social service has okayed discharge planning to [facility]. The patient to have CBC basic and a repeat chest x-ray in one week. Diet is ADA 1800. [place], [place] DISCHARGE SUMMARY NAME: JONO GARCIA UNIT #: [id number] ROOM: [facility] DOCTOR: CHARLES BATISTA MD BIRTHDATE: [birth year] CHARLES BATISTA MD CM:DISCHARG 2 CHARLES BATISTA MD 07/21/17 0855 interface
--- NOTE | ~2017-07-10 | PR ---
[place], [place] PROGRESS NOTE [id number] UNIT #: [id number] ROOM: 505 DOCTOR: CHARLES BATISTA MD BIRTHDATE: [birth year] DOS: SUBJECTIVE: The patient is still having some shortness of breath. OBJECTIVE: VITAL SIGNS: Graphic trend shows a pressure of 169/73, pulse of 75, respirations 18, temperature 97.3. LUNGS: Diminished breath sounds. HEART: Regular. ABDOMEN: Soft. EXTREMITIES: Without any edema. LABORATORY DATA: Blood culture shows Staph hominis. Sputum culture shows normal hari. Chest x-ray yesterday showed PICC line in place. ASSESSMENT AND PLAN: 1. Multilobar pneumonia. The patient is stable and slowly improving, but still has a lot of rhonchi in her lungs. We will ask Dr. Finch for an opinion. 2. Diabetes mellitus with hypoglycemia. Would avoid giving her increased steroids right now, Pulmicort will be ordered. 3. Staph hominis of the blood, on medications, on vancomycin. PICC line has been placed. The patient should be able to go back to the longterm when cleared by Josette. CHARLES BATISTA MD CM:PNTRANS [id number] CHARLES BATISTA MD 07/16/17 1019 interface
--- NOTE | ~2017-07-10 | PR ---
[place], [place] PROGRESS NOTE NAME: JONO GARCIA [facility] #: [id number] UNIT #: [id number] ROOM: 505 DOCTOR: MADELYN MARTINEZ MD BIRTHDATE: [birth year] DOS: 07/19/2017 SUBJECTIVE: The patient is more awake and alert, but quite weak, body alarm is in place. OBJECTIVE: VITAL SIGNS: Blood pressure 144/84, heart rate of 64 beats per minute, breathing normally, afebrile. GENERAL APPEARANCE: The patient is alert and oriented x 3, in no visible distress, except for generalized weakness and obesity. HEENT AND NECK: Exam within normal limits. CARDIOVASCULAR SYSTEM: Heart rate is regular in rate and rhythm. S1 and S2 normally audible. LUNGS: Clear to auscultation. ABDOMEN: Soft, nontender. No obvious organomegaly. Bowel sounds are present. EXTREMITIES: Without significant cyanosis or edema. IMPRESSION AND PLAN: 1. The patient with acute exacerbation of underlying chronic obstructive pulmonary disease, with improving shortness of breath. 2. Bilateral lower lobe infiltrates and pneumonia, being treated with antibiotics. 3. Old age, adult failure to thrive. The patient is to work with physical therapy. 4. Type 2 diabetes mellitus. Blood sugar is being monitored and treated. 5. Staphylococcus hominis in blood cultures. Cleared after treatment with vancomycin. MADELYN MARTINEZ MD CM:PNTRANS [phone] MADELYN MARTINEZ MD 07/19/171853 interface
--- NOTE | ~2017-07-10 | PROC NOTE ---
[place], [place] PROCEDURE NOTE NAME: JONO GARCIA UNIT #: [id number] ROOM: 505 DOCTOR: DELFIN FREY MD,GASTON BIRTHDATE: [birth year] DOS: 07/18/2017 PREOPERATIVE DIAGNOSES: Bilateral pulmonary infiltration, nonresolving with nonresolving cough as well. POSTOPERATIVE DIAGNOSES: 1. Severe crusted secretions of the patient, copious amount noted in the throat. 2. Ongoing acute tracheobronchitis and evidence of acute pneumonia, purulent secretions moderate to large amount removed from the endobronchial tree. PROCEDURE DESCRIPTION: Informed consent obtained from the patient's son. She was brought to the OR and placed in supine physician. Conscious sedation administered by the Anesthesia Department. After achieving proper sedation, airway introduced into the mouth. Bronchoscope advanced through the airway into laryngeal area. Epiglottis and vocal cords were seen. The vocal cords were moving symmetrically with movements. Bronchoscope was advanced to the vocal cord and tracheal lumen shows moderate amount of purulent secretions suctioned out to the elsy level. The elsy noted sharp. Right upper, right lower, left upper, lingula, all bronchi were examined with moderate amount of purulent secretions present in the endobronchial tree bilaterally, more in the lower than the upper lungs. All secretions suctioned out and sent for culture. The procedure was well tolerated by the patient without any difficulty. After collecting the specimen, the remaining secretions in the throat , which were noted very crusted, were cleared off with saline and suctioning back with the bronchoscope. Clear laryngeal and pharynx area was noted after that. Postoperative findings were discussed with the patient's son in detail after completion of the procedure. Based on the bronchoscopy, no change in the treatment at this time immediately will be needed. GASTON LENZ MD CM:PROCNOTE:PROCEDURE NOTE [id number] GASTON FREY MD
--- NOTE | ~2017-07-10 | PR ---
[place], [place] PROGRESS NOTE [id number] UN[facility] #: [id number] ROOM: 505 DOCTOR: CHARLES BATISTA MD BIRTHDATE: [birth year] DOS: 07/21/2017 SUBJECTIVE: The patient is not having any complaints, resting comfortably. During the night. She did develop shortness of breath and then one dose of Lasix was given. OBJECTIVE: VITAL SIGNS: Blood pressure is 154/48, pulse of 64, respirations 20, temperature 97.7. LUNGS: Clear, a few scattered rhonchi heard. HEART: Regular. ABDOMEN: Obese. EXTREMITIES: Without any edema. ASSESSMENT AND PLAN: 1. Pneumonia with sepsis. 2. Bronchoscopy with negative bronch cultures. 3. Adult failure to thrive. The patient to go to [facility] today. CHARLES BATISTA MD CM:PNTRANS [phone] CHARLES BATISTA MD 07/22/17 1325 interface
--- NOTE | ~2017-07-10 | CON ---
[place], [place] REPORT OF CONSULTATION NAME: JONO GARCIA [facility] #: [id number] UNIT #: [id number] ROOM: 505 DOCTOR: GASTON HOUGH MD BIRTHDATE: [birth year] DOS: 07/17/2017 PULMONARY CONSULTATION, EVALUATION AND MANAGEMENT CONSULTATION REQUESTED BY: Dr. Maisha Chang. REASON FOR CONSULTATION: For the nonresolution of current acute respiratory complaints. The patient was also reported with acute pneumonia. HISTORY OF PRESENT ILLNESS: This 82-year-old white female patient who was admitted under care of Dr. Maisha Chang has been noted with increasing respiratory symptoms ongoing at the nursing facility. She was also noted with normal lab, which was sent for this patient as well with elevated WBC count. She does report symptoms of having chest congestion and cough without any sputum expectoration recently. She denies symptoms of chest pain. Denies symptoms of hemoptysis. History of the patient noted quite limited, not able to answer all the questions appropriately with understanding. She has not been reported with any symptoms of hemoptysis. The patient has been getting intravenous antibiotics and noted excessive chest congestion, inability to expectorate any sputum. REVIEW OF SYSTEMS: CONSTITUTIONAL: Fatigue and tiredness reported without any symptoms of fever or chills. EYES: Denies any burning, redness, or tenderness. EARS, NOSE, THROAT SYMPTOMS: Denies sore throat, hoarseness, otalgia, postnasal drainage or epistaxis. CARDIOVASCULAR: She did not report any symptoms of edema, pain in the lower extremity, palpitation, anginal pain. GASTROINTESTINAL SYMPTOMS: Denies symptoms of nausea, vomiting, diarrhea, abdominal pain, hematemesis, melena, hematochezia, abnormal weight loss or dysphagia. GENITOURINARY: No dysuria, suprapubic pain, hematuria. MUSCULOSKELETAL SYMPTOMS: There were no symptoms of joint pain, redness, tenderness reported. SKIN: Denies any abnormal lesions or rashes. CENTRAL NERVOUS SYSTEM: General weakness and fatigue were noted. The patient does not have any symptoms of seizures or tingling sensation of the extremities. Remaining systems were reviewed. They were noted all negative. PAST MEDICAL HISTORY: Known with history of: 1. Type 2 diabetes mellitus. 2. Essential hypertension. 3. Chronic obesity. 4. Essential hypertension. 5. Hard of hearing. 6. Mostly bedbound with recurrent falls. 7. Failure to thrive. 8. Diabetic nephropathy with chronic kidney disease, stage 4. [place], [place] REPORT OF CONSULTATION NAME: JONO GARCIA UNIT #: [id number] ROOM: [facility] DOCTOR: GASTON HOUGH MD BIRTHDATE: [birth year] 9. History of colon cancer treated with colectomy many years ago. 10. History of coronary artery disease. SOCIAL HISTORY: The patient is currently a resident of [facility]. No history of alcohol use or illicit drug use was known. The tobacco use was noted in the past started at younger age, a pack of cigarettes per day that was discontinued about 26 years ago. There was no history of alcohol use or illicit drug use reported. PAST SURGICAL HISTORY: 1. Complete hysterectomy. 2. Partial colectomy for the cancer. FAMILY HISTORY: The patient's father at age 6868 years old of unknown medical complication. Mother at age 6363 years old of unknown medical complications. MEDICATIONS: The current medication administered noted use of intravenous vancomycin, Pulmicort Respules, clonidine, Mucinex, Carafate, simvastatin, Imdur, hydralazine, Lasix, dicyclomine, Coreg, aspirin, sliding scale insulin coverage, IV Rocephin, and other p.r.n. medications. DRUG ALLERGY HISTORY: NOTED ALLERGY TO ROCEPHIN. PHYSICAL EXAMINATION: GENERAL: An 82-year-old female who has been currently noted awake and alert without any acute distress. Height of 5 feet 2 inches, weight 180 pounds, BMI 32.8. VITAL SIGNS: Shows normal temperature in the past 3 days, respiratory rate 18-16, heart rate of 74-67, blood pressure 155/85-116/73. Pulse oxygen saturation recorded as 96% on 2 liter nasal cannula. HEENT: Shows head was atraumatic. Eyes nonicterus. NECK: Supple. Decreased hearing. Senile hearing loss. CARDIOVASCULAR: S1, S2 is audible. LUNGS: Noted moderate decreased breath sounds, scattered crackles of the lungs. ABDOMEN: Noted moderate obesity. Bowel sounds present. EXTREMITIES: Without any acute edema, clubbing, cyanosis. CENTRAL NERVOUS SYSTEM: There were no gross focal neurologic deficit. MUSCULOSKELETAL SYMPTOMS: Without any acute deformities. LABORATORY DATA: BMP on admission of 07/10/2017; BUN 57, creatinine 2.21, glucose 161, sodium 135. CBC on admission; WBC count 22.6, hemoglobin 10.2, hematocrit 32.2, platelet count was normal. PT and PTT noted as normal PT, PTT. CMP of the patient; BUN 62, creatinine 2.15, sodium 132. BMP was noted 5527 on admission. The arterial blood gas that was done on 07/13/2017; pH of 7.32, pCO2 of 46, pO2 122. This was done on nasal cannula oxygen. Spontaneous sputum culture was reported as normal hari, final results. Blood culture shows no bacterial growths. Review of the radiology data that was done for the patient from admission and on were related to the chest with a chest x-ray, 1 view, which was done, the patient was noted with cardiomegaly with pulmonary [place], [place] REPORT OF CONSULTATION NAME: JONO GARCIA UNIT #: [id number] ROOM: [facility] DOCTOR: DELFIN FREY MD,[facility] BIRTHDATE: [birth year] infiltration in the lungs were noted. The chest x-ray that was done on the of this month essentially showed the same finding with the PICC line in place. Chest x-ray was noted with persistent bilateral pulmonary infiltration, unchanged. Chest x-ray that was done in February 2018 does not show any of those infiltration except small linear atelectasis of left lower lobe. CT scan of the chest that was done on 07/11/2017 was reviewed independently, patchy infiltration noted in the right middle lobe as well as in the right and the left lower lobe with a small peripheral infiltration noted in the left upper lobe as well. Mediastinal window review was noted limited because lack of intravenous contrast and was not suggestive of any significant enlarged lymph nodes. There were no pleural effusions. IMPRESSION: 1. The patient who has been currently admitted to the hospital noted with multilobar pneumonia with etiology to be considered gram-positive and gram-negative infection for this patient, currently treated with intravenous vancomycin and Rocephin. 2. Listed allergy to ROCEPHIN was not clear, but the patient has been tolerating Rocephin, which has been used regularly. Spontaneous sputum culture was noted negative. Chest congestion noted with retained secretions very likely and ongoing infection and bronchitis, suspected as well. 3. Acute hypercapnic respiratory failure as well. 4. Chronic kidney disease, stage 4, which has been noted stable. 5. Chronic obesity. PLAN OF MANAGEMENT: At this time, the patient will benefit from therapeutic bronchoscopy, which will be diagnostic as well to resolve the current pneumonia, clear out the mucus impaction. The culture will help to modify the antibiotic coverage. Titrate oxygen to maintain pulse ox saturation 90% or greater. Continue on supportive therapy, plan of management in progress. Assessment and management of the patient has been discussed with the patient in detail. Thanks for allowing me to participate in care of this patient. GASOTN LENZ MD CM:CONSTR:REPORT OF CONSULTATION 1443 07/18/17 1238 interface
--- NOTE | ~2017-07-10 | WRIGHTHP ---
[place], [place] PATIENT HISTORY AND PHYSICAL EXAM NAME: JONO GARCIA [facility] #: [id number] UNIT #: [id number] ROOM: 505 DOCTOR: CHARLES BATISTA MD BIRTHDATE: [birth year] DOS: 07/10/2017 HISTORY OF PRESENT ILLNESS: The patient is 82-year-old. The patient is very well known to us. She was doing fairly well except for a cough, but she just finished her antibiotics. [facility], she became quite hypotensive. This improved in a few hours, but blood work showed that she had developed prerenal azotemia and so was transferred to the Emergency Room with possibility of sepsis and elevated white cell count. She arrived at the Emergency Room and was found to have possibility of pneumonia and was admitted. She denies having any chest pains, palpitations, does not have any fever, chills, does not have any abdominal pain, nausea, any emesis. PAST MEDICAL HISTORY: Significant for: 1. Last hospitalization in February 2017 for hypoglycemia. 2. Type 2 diabetes mellitus, insulin-dependent. 3. Benign hypertension. 4. Mixed hyperlipidemia. 5. Frailty with adult failure to thrive, multiple falls. 6. Hard of hearing. 7. Diabetic nephropathy stage 4. 8. Noncompliance with poor insight to medical problems. MEDICATIONS: She is currently on breathing treatments ____ q. 4 hours, Spiriva 1 puff at bedtime, aspirin 81 daily, Coreg 6.25 mg twice a day, Colace 100 b.i.d., duloxetine 60 daily, Lasix 60 daily, gabapentin 300 at bedtime, hydralazine 100 b.i.d., Isordil 30 daily, ____ 7.5 at bedtime, potassium 10 daily, Pravachol 40 daily, Carafate 1 gram b.i.d., Lantus 35 units subcutaneous daily coverage scale. SOCIAL HISTORY: Nonsmoker, does not use any alcohol. She is a resident of [facility]. PHYSICAL EXAMINATION: GENERAL: She is awake and alert and oriented. VITAL SIGNS: Graphic trend shows that she is afebrile this morning, blood pressure is 142/70, pulse of 76, respiration 22, temperature 98.4. LUNGS: Diminished breath sounds, scattered rhonchi. HEART: Regular. ABDOMEN: Obese, soft. EXTREMITIES: Without any edema. LABORATORY DATA: Chest x-ray shows cardiomegaly, chronic fibrotic changes. White cell count is 22,000. BMP: Glucose 161, BUN 57, creatinine 2.21, sodium 135, potassium 4.9. ASSESSMENT AND PLAN: 1. The patient with chronic stage 4 kidney disease from underlying diabetic nephropathy, has developed slight acute kidney injury, possibly from hypotension and acute tubular necrosis. Slow IV hydration will be given. 2. History of benign hypertension, but the patient became hypotensive, possibly [place], [place] PATIENT HISTORY AND PHYSICAL EXAM [facility]: [id number] UN[facility] #: [id number] ROOM: [facility] DOCTOR: CHARLES BATISTA MD BIRTHDATE: [birth year] from sepsis. Cultures have been sent. The patient has an elevated white cell count of 22,000, but lactic acid is normal. 3. Cough with sepsis pattern, possibly has underlying pneumonia. CT of the chest will be ordered. Antibiotics have been prescribed. 4. Type 2 diabetes mellitus, insulin-dependent. Continue home medications. 5. Benign hypertension. Continue home meds. Once we have the CT report, we will readjust antibiotic regimen. CHARLES BATISTA MD CM:HISPHYS:PATIENT HISTORY AND PHYSICAL EXAMINATION [id number] 4 CHARLES BATISTA MD 07/11/1735 interface
[~2017-07-10 14:58] MED LIST changes: +ASPIR LOW81 MG PO; +AUGMENTIN 875-875 MG PO; +CYMBALTA60 MG PO; +HUMALOG100 UNIT/1 SQ; +HYDRALAZINE HC100 MG PO; +HYDROCODON-ACE1 EACH PO; +K-TAB10 MEQ PO; +LANTUS SOL100 UNIT/1 SC; +PRAVACHOL40 MG PO
[2017-07-10 15:04] VITALS: BP 155/62
[2017-07-10 16:00] VITALS: BP 187/65
[2017-07-10 16:05] VITALS: BP 158/64
[2017-07-10 16:14] LABS: BASO # 0.1 10*3/uL (0.0-0.1); BASO % 0.3 % (0.0-1.0); EOS # 0.1 10*3/uL (0.0-0.4); EOS % 0.4 % (1.0-4.0); HEMATOCRIT 30.1 % (37.0-47.0); HEMOGLOBIN 9.5 g/dl (12.0-16.0); LYMPH % 11.9 % (27.0-41.0); MEAN CORPUSCULAR HGB 26.8 pg (27.0-31.0); MEAN CORPUSCULAR HGB CONC 31.6 g/dl (33.0-37.0); MONO # 1.2 10*3/uL (0.1-1.0); MONO % 7.2 % (3.0-9.0); NEUT # 13.5 10*3/uL (2.3-7.9); NEUT % 79.5 % (47.0-73.0); PLATELET COUNT AUTOMATED 203 10*3/uL (130-400); RED BLOOD COUNT 3.54 10*6/uL (4.10-5.10); RED CELL DISTRI WIDTH 15.8 % (0-14.5)
[2017-07-10 16:23] LABS: ACT PARTIAL THROMBO TIME 25.5 SECONDS (20.8-31.5)
[2017-07-10 16:28] LABS: BILIRUBIN NEGATIVE (NEGATIVE); BLOOD NEGATIVE (NEGATIVE); CLARITY CLEAR (CLEAR); COLOR YELLOW (YELLOW); GLUCOSE 1+ (NEGATIVE); KETONE NEGATIVE (NEGATIVE); LEUKO ESTERASE NEGATIVE (NEGATIVE); NITRITE NEGATIVE (NEGATIVE); PH 5.5 (5.0-9.0); UROBILINOGEN 0.2 E.U./dl (0.2-1.0)
[2017-07-10 16:31] LABS: ALBUMIN 2.6 gm/dl (3.1-4.5); ALKALINE PHOSPHATASE 97 U/L (45-117); BUN 62 mg/dl (7-24); CHLORIDE 99 mmol/L (98-107); CREATININE 2.15 mg/dL (0.55-1.02); LIPASE 97 U/L (73-393); POTASSIUM 4.3 mmol/L (3.5-5.1); SGOT/AST 11 IU/L (3-35); SGPT/ALT 19 U/L (12-78); SODIUM 132 mmol/L (136-145); TOTAL PROTEIN 6.6 gm/dL (6.4-8.2)
[2017-07-10 16:32] LABS: TROPONIN I < 0.015 ng/ml (<0.045)
[2017-07-10 16:35] LABS: RBC 0-2 rbc/hpf (0-2); WBC 0-2 wbc/hpf (0-5)
[2017-07-10 16:36] LABS: MUCOUS TRACE
[2017-07-10 17:00] VITALS: BP 155/52
[2017-07-10 17:30] VITALS: BP 126/55
[2017-07-10] MEDS ORDERED: AMOXICILLIN500 M2 PO (19:30)
[2017-07-10] MEDS ORDERED: NS 0.9% IV (19:32)
[2017-07-10] MEDS ORDERED: MIRTAZAPINE7.5 MG PO (19:33)
[2017-07-10] MEDS ORDERED: FLEET ENEMA 13133 ML R (19:34)
[2017-07-10] MEDS ORDERED: SUPPOSITORY1 EACH R (19:35)
[2017-07-10] MEDS ORDERED: LANTUS SOL100 UNIT/1 SQ (19:36)
[2017-07-10] MEDS ORDERED: DUONEB 3 MG/3 ML3 M1 INH (19:38)
[2017-07-10] MEDS ORDERED: LASIX20 MG PO (19:40)
[2017-07-10 20:55] VITALS: BP 185/77
[2017-07-11] VITALS: BP 153/63
[2017-07-11 08:00] VITALS: BP 140/42
[2017-07-11 12:00] VITALS: BP 153/53
[2017-07-11 16:00] VITALS: BP 156/51
[2017-07-11 20:00] VITALS: BP 156/65
[2017-07-12] VITALS: BP 172/70; BP 180/78; BP 192/80
[2017-07-12 04:00] VITALS: BP 150/62
[2017-07-12 08:00] VITALS: BP 156/53
[2017-07-12 12:00] VITALS: BP 147/59
[2017-07-12 16:00] VITALS: BP 142/63
[2017-07-12 20:00] VITALS: BP 175/73
[2017-07-13] VITALS: BP 168/70
[2017-07-13 06:26] LABS: BASO # 0.1 10*3/uL (0.0-0.1); BASO % 0.5 % (0.0-1.0); EOS # 0.4 10*3/uL (0.0-0.4); EOS % 2.9 % (1.0-4.0); HEMATOCRIT 29.7 % (37.0-47.0); HEMOGLOBIN 9.1 g/dl (12.0-16.0); LYMPH # 1.5 10*3/uL (1.3-4.4); LYMPH % 12.1 % (27.0-41.0); MEAN CELL VOLUME 86.3 fl (81.0-99.0); MEAN CORPUSCULAR HGB 26.5 pg (27.0-31.0); MEAN CORPUSCULAR HGB CONC 30.6 g/dl (33.0-37.0); MEAN PLATELET VOLUME 10.4 fl (9.6-12.3); MONO # 1.1 10*3/uL (0.1-1.0); NEUT # 9.3 10*3/uL (2.3-7.9); PLATELET COUNT AUTOMATED 202 10*3/uL (130-400); RED BLOOD COUNT 3.44 10*6/uL (4.10-5.10); RED CELL DISTRI WIDTH 15.9 % (0-14.5); WHITE BLOOD COUNT 12.3 10*3/uL (4.8-10.8)
[2017-07-13 06:52] LABS: CREATININE 1.98 mg/dL (0.55-1.02); POTASSIUM 4.4 mmol/L (3.5-5.1)
[2017-07-13 07:34] LABS: ABG BASE EXCESS -1.8 mmol/L (-2.0-2.0); ABG HCO3 23.7 mmol/l (22-26); ABG O2 SATURATION 98.4 % (95-97); ARTERIAL BLOOD GAS PCO2 46.6 mmHg (35-45); ARTERIAL BLOOD GAS PH 7.327 (7.35-7.45)
[2017-07-13 08:00] VITALS: BP 148/46
[2017-07-13 12:00] VITALS: BP 122/51
[2017-07-13 16:00] VITALS: BP 146/55
[2017-07-13 20:00] VITALS: BP 154/86
[2017-07-14] VITALS (7 sets, daily range): BP systolic 125–202; BP diastolic 55–88
[2017-07-15] VITALS (7 sets, daily range): BP systolic 125–204; BP diastolic 51–92
[2017-07-16] VITALS: BP 138/58
[2017-07-16 06:42] LABS: CREATININE 2.16 mg/dL (0.55-1.02)
[2017-07-16 08:00] VITALS: BP 169/63; BP 169/73
[2017-07-16 12:00] VITALS: BP 171/56
[2017-07-16 16:00] VITALS: BP 134/43
[2017-07-16 20:00] VITALS: BP 159/72
[2017-07-17] VITALS: BP 155/85
[2017-07-17 08:00] VITALS: BP 153/73
[2017-07-17 12:00] VITALS: BP 117/60
[2017-07-17 16:00] VITALS: BP 155/72
[2017-07-17 20:00] VITALS: BP 163/78
[2017-07-18] VITALS (9 sets, daily range): BP systolic 91–193; BP diastolic 60–98
[2017-07-19] VITALS: BP 152/56
[2017-07-19 07:09] LABS: CREATININE 1.81 mg/dL (0.55-1.02)
[2017-07-19 08:00] VITALS: BP 144/84
[2017-07-19 15:06] LABS: ACID FAST SPEC PROCESSING Concentration (.)
[2017-07-19 16:00] VITALS: BP 169/71
[2017-07-19 20:00] VITALS: BP 120/67
[2017-07-20] VITALS: BP 138/65
[2017-07-20 08:00] VITALS: BP 156/60
[2017-07-20 12:00] VITALS: BP 158/83
[2017-07-20 16:00] VITALS: BP 154/84
[2017-07-20 20:00] VITALS: BP 152/58
[2017-07-21] VITALS: BP 131/73; BP 154/48
[2017-07-21 08:00] VITALS: BP 162/95
[2017-07-21] MEDS ORDERED: DOXYCYCLINE100 M3 PO (08:32)
[2017-07-21 12:00] VITALS: BP 148/66
== END 2017-07-21 15:53 | DRG 871 ==
LOC: ED 14:58 → 5E 16:48 → EDHOLD 16:48 → 5E 17:11
PROVIDERS: Emergency Medicine; Internal Medicine; Internal Medicine Critical Care Medicine
PROC: 02HV33Z Insertion of Infusion Device into Superior Vena Cava, Percutaneous Approach (ICD-10-PCS; 2017-07-15)
PROC: 0BC18ZZ Extirpation of Matter from Trachea, Via Natural or Artificial Opening Endoscopic (ICD-10-PCS; principal; 2017-07-18)
PROC: 0BCB8ZZ Extirpation of Matter from Left Lower Lobe Bronchus, Via Natural or Artificial Opening Endoscopic (ICD-10-PCS; principal; 2017-07-18)
PROC: 0BC38ZZ Extirpation of Matter from Right Main Bronchus, Via Natural or Artificial Opening Endoscopic (ICD-10-PCS; principal; 2017-07-18)
PROC: 0BC98ZZ Extirpation of Matter from Lingula Bronchus, Via Natural or Artificial Opening Endoscopic (ICD-10-PCS; principal; 2017-07-18)
PROC: 0BC58ZZ Extirpation of Matter from Right Middle Lobe Bronchus, Via Natural or Artificial Opening Endoscopic (ICD-10-PCS; principal; 2017-07-18)
PROC: 0BC28ZZ Extirpation of Matter from Carina, Via Natural or Artificial Opening Endoscopic (ICD-10-PCS; principal; 2017-07-18)
PROC: 0BC88ZZ Extirpation of Matter from Left Upper Lobe Bronchus, Via Natural or Artificial Opening Endoscopic (ICD-10-PCS; principal; 2017-07-18)
PROC: 0BC48ZZ Extirpation of Matter from Right Upper Lobe Bronchus, Via Natural or Artificial Opening Endoscopic (ICD-10-PCS; principal; 2017-07-18)
PROC: 0BC78ZZ Extirpation of Matter from Left Main Bronchus, Via Natural or Artificial Opening Endoscopic (ICD-10-PCS; principal; 2017-07-18)
PROC: 0BC68ZZ Extirpation of Matter from Right Lower Lobe Bronchus, Via Natural or Artificial Opening Endoscopic (ICD-10-PCS; principal; 2017-07-18)
DX: A40.8 Other streptococcal sepsis (principal); J13 Pneumonia due to Streptococcus pneumoniae; N17.0 Acute kidney failure with tubular necrosis; J96.01 Acute respiratory failure with hypoxia; J96.02 Acute respiratory failure with hypercapnia; E11.22 Type 2 diabetes mellitus with diabetic chronic kidney disease; J44.0 Chronic obstructive pulmonary disease with (acute) lower respiratory infection; J84.10 Pulmonary fibrosis, unspecified; N18.4 Chronic kidney disease, stage 4 (severe); J44.1 Chronic obstructive pulmonary disease with (acute) exacerbation; E86.0 Dehydration; Z66 Do not resuscitate; Z51.5 Encounter for palliative care; E78.2 Mixed hyperlipidemia; I25.10 Atherosclerotic heart disease of native coronary artery without angina pectoris; H91.90 Unspecified hearing loss, unspecified ear; I12.9 Hypertensive chronic kidney disease with stage 1 through stage 4 chronic kidney disease, or unspecified chronic kidney disease; R62.7 Adult failure to thrive; R41.81 Age-related cognitive decline; J20.9 Acute bronchitis, unspecified; E66.09 Other obesity due to excess calories; Z85.038 Personal history of other malignant neoplasm of large intestine; Z87.891 Personal history of nicotine dependence; Z68.32 Body mass index [BMI] 32.0-32.9, adult; Z87.81 Personal history of (healed) traumatic fracture; Z90.710 Acquired absence of both cervix and uterus; Z79.4 Long term (current) use of insulin; Z79.82 Long term (current) use of aspirin; Z79.899 Other long term (current) drug therapy; Z88.8 Allergy status to other drugs, medicaments and biological substances

== ENCOUNTER 2017-08-18 01:55 | Inpatient (IN) | payer MEDICARE ==
[~2017-08-18] VITALS: Ht 165.1 cm; Wt 87.3 kg
[2017-08-18] VITALS (8 sets, daily range): BP systolic 106–163; BP diastolic 31–72
--- NOTE | ~2017-08-18 | PR ---
[place], [place] PROGRESS NOTE NAME: JONO GARCIA [facility] #: [id number] UNIT #: [id number] ROOM: 410 DOCTOR: DELFIN FREY MD,GASTON BIRTHDATE: [birth year] DOS: 08/21/2017 SUBJECTIVE: The patient has been noted comfortable at this time, resting on the bed. She has not been noted any symptoms of chest pain or any abdominal pain. She has been sitting comfortably at this time on the chair using oxygen supplement nasal cannula. OBJECTIVE: VITAL SIGNS: Normal temperature, respiratory rate 18, heart rate 71, blood pressure 143/93, pulse ox saturation on 2 liters nasal cannula 97% saturation. HEENT: Shows head was atraumatic. Eyes nonicterus. NECK: Supple. CARDIOVASCULAR: S1, S2 audible. LUNGS: The patient was noted without any wheezing or crackles. ABDOMEN: Soft, nontender. EXTREMITIES: Without any acute edema. LABORATORY DATA: Chest x-ray in the lab was noted with resolving infiltration in the left lower lobe. IMPRESSION: Improving acute left lower lobe pneumonia with current combination of medications and the antibiotics. There was no pleural fluid noted significantly at this time with the current chest x-ray. PLAN OF MANAGEMENT: Continuation of the antibiotics, bronchodilators, oxygen supplementation and the discharge planning as previously discussed with Dr. Fortune yesterday. GASTON LENZ MD CM:PNTRANS [id number] GASTON FREY MD 08/21/17 1423 interface
--- NOTE | ~2017-08-18 | EKG ---
[place], [place] ELECTROCARDIOGRAM REPORT NAME: JONO GARCIA UNIT #: [id number] ROOM: 410 DOCTOR: DELFIN FREY MD,GASTON BIRTHDATE: [birth year] DOS: 08/18/2017 ELECTROCARDIOGRAM TIME: 02:24 a.m. FINDINGS: Sinus bradycardia noted. Heart rate 52 beats per minute, short [place] interval. Poor R-wave progression noted. Rule out myocardial infarction versus old changes. Mild ST segment elevation noted in II, III, aVF as well, rule out inferior wall myocardial infarction. GASTON LENZ MD CM:EKGRPT:ELECTROCARDIOGRAM REPORT [id number] 08 GASTON FREY MD
--- NOTE | ~2017-08-18 | EKG ---
[place], [place] ELECTROCARDIOGRAM REPORT NAME: JONO GARCIA UNIT #: [id number] ROOM: 410 DOCTOR: DELFIN FREY MD,GASTON BIRTHDATE: [birth year] DOS: 08/18/2017 ELECTROCARDIOGRAM The electrocardiogram done on 08/18/2017 at 6:20 p.m. Normal sinus rhythm noted with heart rate of 78 beats per minute. The ST segment noted minimally elevated in the inferior leads with poor R-wave progression that persisted as noted previous in electrocardiograms. Consider acute ischemia. GASTON LENZ MD CM:EKGRPT:ELECTROCARDIOGRAM REPORT 1642 1811 GASTON FREY MD
--- NOTE | ~2017-08-18 | PR ---
[place], [place] PROGRESS NOTE [id number] UNIT #: [id number] ROOM: 410 DOCTOR: DELFIN FREY MD,GASTON BIRTHDATE: [birth year] DOS: 08/20/2017 SUBJECTIVE: She has been noted sitting on the chair this morning, comfortably resting, reported with some cough without any sputum expectoration. There were NO symptoms of chest pain or any abdominal pain. OBJECTIVE: VITAL SIGNS: Normal temperature, respiratory rate 18, heart rate 71, blood pressure 162/78-171/46. Pulse oxygen saturation of the patient was noted as 99% saturation on 2 liters nasal cannula. HEENT: Examination shows hearing loss, which was noted moderate and chronic. CARDIOVASCULAR: S1, S2 audible. LUNGS: Noted with scattered crackles in the left lower lung. ABDOMEN: Soft, nontender. EXTREMITIES: Without any acute edema. IMPRESSION: 1. The patient who has been currently noted with acute pneumonia of left lower lobe, with small associated pleural fluid, which has been treated with antibiotics at the present time. 2. Overall muscle deconditioning. PLAN OF TREATMENT: Continue combination of Levaquin and doxycycline. Repeat another chest x-ray in the morning to assess the progression of the pneumonia. The discharge planning of the patient could be started for group home facility and transfer this patient for continued antibiotic and rehabilitation. GASTON LENZ MD CM:PNTRANS [id number] GASTON FREY MD 08/21/17 0224 interface
--- NOTE | ~2017-08-18 | PR ---
[place], [place] PROGRESS NOTE [id number] UNIT #: [id number] ROOM: 410 DOCTOR: MADELYN MARTINEZ MD BIRTHDATE: [birth year] DOS: 08/19/2017 SUBJECTIVE: Patient more alert, but quite confused, in no visible distress. OBJECTIVE: VITAL SIGNS: Blood pressure 180/72, heart rate 72 beats per minute, breathing 18 times per minute, afebrile. GENERAL APPEARANCE: Mental confusion and generalized weakness. HEENT AND NECK: Exam within normal limits. CARDIOVASCULAR SYSTEM: Heart rate is regular in rate and rhythm. S1 and S2 normally audible. LUNGS: Clear to auscultation. ABDOMEN: Soft, nontender. No obvious organomegaly. Bowel sounds are present. EXTREMITIES: Without significant cyanosis or edema. IMPRESSION: 1. Severe hypoglycemia has resolved, blood sugars have improved and will be followed closely and treated as necessary. 2. Hyperkalemia yesterday has resolved, potassium level normal at 4.8. 3. BUN and creatinine with chronic kidney failure, stage 4, stable at this point. 4. Benign essential hypertension. Blood pressures are elevated and she is already on hydralazine and Coreg, which patient was taking at home. Patient is on Norvasc 5 mg a day and I will increase the dose to 10 mg a day. 5. Chronic diastolic type congestive heart failure, compensated. 6. Persistent mental confusion and delirium, being followed closely. MADELYN MARTINEZ MD CM:PNMARIANO 04 MADELYN MARTINEZ MD 08/20/17 0012 interface
--- NOTE | ~2017-08-18 | EKG ---
[place], [place] ELECTROCARDIOGRAM REPORT NAME: JONO GARCIA UNIT #: [id number] ROOM: 410 DOCTOR: DELFIN FREY MD,GASTON BIRTHDATE: [birth year] DOS: 08/19/2017 Electrocardiogram was done at 2135 hours. Electrocardiogram shows normal sinus rhythm. Heart rate [address] segment elevation. Inferior leads currently not assessed. Poor R-wave progression noted in the chest leads, rule out acute myocardial infarction. GASTON LENZ MD CM:EKGRPT:ELECTROCARDIOGRAM REPORT 1640 1653 GASTON FREY MD
--- NOTE | ~2017-08-18 | PR ---
[place], [place] PROGRESS NOTE NAME: JONO GARCIA [facility] #: [id number] UNIT #: [id number] ROOM: 410 DOCTOR: DELFIN FREY MDGASTON BIRTHDATE: [birth year] DOS: 08/19/2017 SUBJECTIVE: The patient has been noted comfortable at this time, noted confusion status, also noted chronic hard of hearing. Denies symptoms of coughing, sputum expectoration or any chest pain at this time. Denies symptoms of nausea, vomiting. She has a cardiac enzyme, which was done ____. The patient does not show any evidence of acute myocardial infarction. The patient was continued on the bronchodilators and other treatment as previously ordered. She has been receiving the Levaquin as the intravenous antibiotics for the medical management of acute pneumonia. Chest x-ray done per patient was reviewed for this patient as well. REVIEW OF SYSTEM: Otherwise limited from the patient because of current overall medical condition and hearing issues. PHYSICAL EXAMINATION: VITAL SIGNS: For the patient which has been recorded showed normal temperature, respiratory rate 18, heart rate 75, blood pressure 160/64. The pulse oxygen saturation of the patient recorded as 92% saturation on room air. HEENT: Examination shows head was atraumatic. Eyes nonicterus. NECK: Supple. CARDIOVASCULAR: S1, S2 audible. LUNGS: The patient was noted without any wheezing or crackles. Breath sounds noted decreased lower portion of the lungs bilaterally. ABDOMEN: Soft, nontender. Bowel sounds present. EXTREMITIES: The patient was noted without any acute edema. LABORATORY DATA: The chest x-ray of the patient that was done today was noted with evidence of pulmonary infiltration of the left lower lung with associated small pleural fluid for the patient was still noted. IMPRESSION: 1. The patient was noted with acute pneumonia, left lower lobe possibly to aspiration associated small pleural fluid. Electrocardiogram abnormality early repolarization for patient would be considered rather than acute myocardial infarction. 2. Chronic hearing loss and other medical problems. PLAN OF TREATMENT: The patient will be started on intravenous doxycycline for the coverage of gram-positive organism including for MRSA. Continue the Levaquin for the coverage of gram-negative organisms and the strep pneumonia. Usual care, other supportive therapy, plan of management and care plan. Monitor chest x-ray to be continued closely, especially for the pleural fluid ____ pulmonary infiltration progression. Usual care, other supportive, plan of management and treatment. [place], [place] PROGRESS NOTE NAME: JONO GARCIA UNIT #: [id number] ROOM: 410 DOCTOR: GASTON HOUGH MD BIRTHDATE: [birth year] GASTON LENZ MD CM:SEBASTIAN [id number] GASTON FREY MD 08/20/17 1033 interface
--- NOTE | ~2017-08-18 | WRIGHTHP ---
[place], [place] PATIENT HISTORY AND PHYSICAL EXAM NAME: JONO GARCIA [facility] #: [id number] UNIT #: [id number] ROOM: 410 DOCTOR: MADELYN MARTINEZ MD BIRTHDATE: [birth year] DOS: 08/18/2017 HISTORY OF PRESENT ILLNESS: The patient is an 82-year-old female who presented to the Emergency Department brought over by an ambulance from [facility] with complaints of severe hypoglycemia. The patient's blood sugar was found to be 47 and she was given glucose tablets. The patient was cold and diaphoretic. The patient is not able to answer to any questions. In the ER, the patient was evaluated and found to be in mild vascular congestion and left basilar airspace disease compatible with pneumonia. After admission, the patient is more awake and alert but still confused and unable to give any history. REVIEW OF SYSTEMS: LUNGS: No increasing shortness of breath recently. GASTROINTESTINAL: No nausea, vomiting, diarrhea or constipation. CARDIOVASCULAR: No chest pains or palpitations. FAMILY HISTORY: Noncontributory. HOME MEDICATIONS: Included mirtazapine, gabapentin, Cymbalta, Imdur, hydralazine, Colace, Coreg, aspirin, amlodipine. ALLERGIES: Known allergies to CEPHALOSPORINS, which is CEFTRIAXONE. PHYSICAL EXAMINATION: GENERAL: Awake, alert, pleasantly confused, in no visible distress. VITAL SIGNS: Blood pressure 126/72, heart rate 72 beats per minute, breathing 22-24 times per minute, afebrile. HEENT AND NECK: Extraocular movements are intact. Sclerae are anicteric. Oral mucosa is moist and clean. No obvious facial weakness. Neck is supple without any lymphadenopathy. No thyromegaly. No JVD. No carotid arterial bruits. LUNGS: Clear to auscultation. No wheezing. No rhonchi. CARDIOVASCULAR SYSTEM: Heart rate is regular in rate and rhythm. S1 and S2 normally audible. No significant murmur or any other abnormal cardiac sounds. ABDOMEN: Soft, nontender. No obvious organomegaly. Bowel sounds are present. No obvious herniation. EXTREMITIES: Without significant cyanosis or edema. Warm to touch. CENTRAL NERVOUS SYSTEM: Alert and oriented x 3. Cranial nerves II-XII are intact. Speech is normal. The patient is able to move all extremities. Normal muscle strength. Deep tendon reflexes are equal on both sides. Plantars were downgoing. Mental confusion and generalized weakness. LABORATORY DATA: White cell count of 16,000, improved from 19,000 yesterday, hemoglobin of 8.7, normal platelets, left shift. BUN and creatinine elevated to 49 and 1.8. The patient has stage 3b chronic kidney disease. Albumin low at 2.4, PT, PTT baseline. Lactic acid level normal. IMPRESSION: 1. The patient presenting with altered mental status, severe hypoglycemia, pneumonia and leukocytosis, starting to feel better with treatment with antibiotics. Dr. Finch, the field nurse has been consulted. [place], [place] PATIENT HISTORY AND PHYSICAL EXAM NAME: JONO GARCIA [facility] #: [id number] UNIT #: [id number] ROOM: 410 DOCTOR: JUAN KRAUSE,MADELYN Palafxo BIRTHDATE: [birth year] 2. Pneumonia, left lower lung, to be treated with antibiotics and Dr. Finch to follow. 3. Mental confusion, delirium, will be followed closely and hopefully should resolve with treatment with antibiotics. 4. Hyperkalemia to be treated with hydration with normal saline. 5. Type 2 diabetes mellitus with severe hypoglycemia at admission, which has resolved with treatment. 6. Adult failure to thrive. The patient to work with physical therapy and we will take bedsore precautions. 7. Chronic diastolic type congestive heart failure with acute over chronic congestive heart failure with some vascular congestion, to be followed closely. The patient also has interstitial lung disease with pulmonary fibrosis which can be mistaken for congestive heart failure on the chest x-ray. 8. Benign essential hypertension. Blood pressure is to be monitored and treated. I will continue home medications. MADELYN MARTINEZ MD CM:HISPHYS:PATIENT HISTORY AND PHYSICAL EXAMINATION 160 57 MADELYN MARTINEZ MD 08/18/171655 interface
--- NOTE | ~2017-08-18 | DS ---
[place], [place] DISCHARGE SUMMARY NAME: JONO GARCIA [facility] #: [id number] UNIT #: [id number] ROOM: 410 DOCTOR: MADELYN MARTINEZ MD BIRTHDATE: [birth year] DOS: 08/21/2017 DISCHARGE DIAGNOSES: 1. The patient's left lower lobe pneumonia, treated and improving. 2. Severe hypoxemia related to pneumonia, resolved. 3. Stage 4 chronic kidney failure and diabetic nephropathy. 4. Uncontrolled type 2 diabetes mellitus. 5. Benign essential hypertension. 6. Chronic diastolic type congestive heart failure. 7. Delirium and mental confusion added on to Alzheimer's type dementia. 8. Advance adult failure to thrive. HOSPITAL COURSE: The patient presented to the Emergency Department at [facility] with altered mental status, severe hypoglycemia, pneumonia and leukocytosis. The patient was admitted and her insulin was stopped and she was kept on a sliding scale of regular insulin. The patient is awake and alert. Although, she is pleasantly confused, but she has underlying late onset Alzheimer's type dementia. The patient appears to have achieved maximum benefit from this admission and will be discharged back to long term. Left lower lobe pneumonia, treated with antibiotics by Dr. Finch, the tankroom tender and the patient was continued on bronchodilators and oxygen as needed. The patient is improved and is being discharged back to a long term. Uncontrolled type 2 diabetes mellitus with severe hypoglycemia at admission. Apparently, the patient's appetite had decreased with the pneumonia and she became hypoglycemic because of the insulin she was receiving. The patient's insulin to be restarted when she is going back to the long term at a lower dose. The patient has become hyperglycemic now that her insulin has been on hold and she is eating better with treatment. Chronic diastolic type congestive heart failure, compensated. The patient has underlying interstitial lung disease and pulmonary fibrosis, which can be easily misinterpreted for an acute congestive heart failure. The patient appears to be euvolemic at this time. Benign essential hypertension, treated and controlled. DISCHARGE MANAGEMENT: Lantus insulin 20 units subq daily, amlodipine 10 mg daily, mirtazapine 7.5 mg at bedtime, gabapentin 300 mg at bedtime, Cymbalta 60 mg a day, Imdur 30 mg a day, hydralazine 100 mg b.i.d., Colace 200 mg at bedtime, dicyclomine 10 mg q.i.d., Coreg 6.25 mg b.i.d., aspirin 81 mg a day, Fleets enema daily p.r.n. for constipation, glycerin suppository 1 b.i.d. p.r.n. for constipation, DuoNebs use q.i.d. on regular basis, Haldol 1 mg every hour p.r.n. p.o. not to exceed 4 mg in 24 hours for agitation, doxycycline 100 mg b.i.d. for a week, Levaquin 500 mg daily for a week. Repeat chest x-ray, PA and lateral in 2 weeks. [place], [place] DISCHARGE SUMMARY NAME: JONO GARCIA UNIT #: [id number] ROOM: 410 DOCTOR: MADELYN MARTINEZ MD BIRTHDATE: [birth year] MADELYN MARTINEZ MD CM:DISCHARG [id number] MADELYN MARTINEZ MD 08/29/17 0748 interface
--- NOTE | ~2017-08-18 | CON ---
[place], [place] REPORT OF CONSULTATION NAME: JONO GARCIA [facility] #: [id number] UNIT #: [id number] ROOM: 410 DOCTOR: GASTON HOUGH MD BIRTHDATE: [birth year] DOS: 08/18/2017 CONSULTATION REQUESTED BY: Maisha Chang MD REASON FOR CONSULTATION: To assess the patient for symptoms of shortness of breath, possibility of acute pneumonia. HISTORY OF PRESENT ILLNESS: This is 82-year-old female patient who has been treated in this hospital previously required therapeutic bronchoscopy, coughing assessment of the respiratory symptom and discharged to the nursing facility. The patient has been readmitted to the hospital for the patient. The patient arrived in the emergency on 08/18/2017 at 1:59 a.m. The patient has been reported with symptoms of having increased shortness of breath and hypoglycemia, which are noted from [facility]. The patient's blood sugar noted 47. She has been given the supplementation of glucose resulting in improvement of the hypoglycemia. This morning, patient has been noted awake and alert. She has been noted with some symptoms of cough. She was noted to have chronic severe hearing loss unable to give me any history by herself. REVIEW OF SYSTEMS: Cannot be effectively performed. Other history was reviewed for this patient medical record since my last consultation of 07/17/2017 for patient remains unchanged that include the past medical history, social history, family history, and surgical history. In addition, therapeutic bronchoscopy was done for the patient on . ____ been documented consultation, which was done for the patient on 07/17/2017. CURRENT MEDICATIONS: Administered noted use of Remeron, gabapentin, Cymbalta, hydralazine, Colace, Coreg, aspirin, Norvasc, sliding insulin coverage, DuoNeb q. 4h., and other p.r.n. medications. DRUG ALLERGIES: THE PATIENT WAS REPORTED ALLERGY TO THE [facility]. PHYSICAL EXAMINATION: GENERAL: This is an 82-year-old female who has been currently noted comfortably at this time, resting on her bed without any acute distress. The patient's height was record of 5 feet 5 inches, weight of 192 pounds, BMI 32. VITAL SIGNS: The patient noted normal temperature, respiratory rate of 18-24, heart rate of 72-53, blood pressure 150/41-162/95. Pulse oxygen saturation of the patient recorded on 1 liter nasal cannula 99% saturation. Previous 2-1/2 liter nasal cannula 93% saturation. HEENT: Examination shows head was atraumatic. Eyes nonicterus. Decreased hearing. CARDIOVASCULAR SYSTEM: S1, S2 audible. LUNGS: Without any wheeze or crackles. ABDOMEN: Soft. Moderate obesity. Bowel sounds present. EXTREMITIES: The patient was noted without any acute edema. MUSCULOSKELETAL: Without any acute deformities. LABORATORY DATA: Lactic acid noted normal this morning on admission. The urine ketones were noted as negative. PT/INR was noted as normal. CBC on 08/18/2017 [place], [place] REPORT OF CONSULTATION NAME: JONO GARCIA UNIT #: [id number] ROOM: [facility] DOCTOR: DELFIN FREY MD,[facility] BIRTHDATE: [birth year] white cell count 18.9, hemoglobin 8.55, hematocrit 27.8, platelet count 137,000, 94% segmented neutrophils. CBC for the patient that was done again this morning labs be a WBC count of 16.1, hemoglobin 8.7, hematocrit 29.9 and the platelet count was normal. CMP for this patient that was done on 08/18/2017 shows glucose 189, BUN 49, creatinine 1.89. The review of the radiology data 1-view chest x-ray of the patient that was done shows a mild pulmonary venous congestion marking noted. Small area of infiltration atelectasis in the left lower lobe of the patient cannot be completely excluded. IMPRESSION: The patient will be currently admitted for findings of hypoglycemia was also noted for this patient. Possible pulmonary venous congestion, electrocautery that was done for the patient this morning for admission was noted with mild ST segment elevation noted in inferior leads. Rule out acute myocardial infarction. The patient already being treated for the pneumonia adequately. The patient has no signs for the patient consistent with acute pneumonia. PLAN OF TREATMENT: Serial cardiac enzymes. The patient was ordered the further electrocardiograms. Obtain a chest x-ray of the patient tomorrow morning, PA lateral view for this patient to exclude any pneumonia. At this time, the patient does not have any signs or symptoms consistent with acute pneumonia. Symptomatic management otherwise will be continued. Other additional treatment changes to be made for this patient in the medical management based on progression of the illness. Continue management of hypoglycemia, which was already corrected. GASTON LENZ MD CM:CONSTR:REPORT OF CONSULTATION 1533 08/19/17 0536 interface
--- NOTE | ~2017-08-18 | EKG ---
[place], [place] ELECTROCARDIOGRAM REPORT NAME: JONO GARCIA UNIT #: [id number] ROOM: 410 DOCTOR: DELFIN FREY MD,[place] BIRTHDATE: [birth year] DOS: 08/18/2017 Electrocardiogram was done on 08/18/2017, at 3:27 p.m. Normal sinus rhythm noted. Heart rate of [address] segment elevation noted inferiorly possibly acute myocardial infarction prominent T waves in the chest leads for RV progression. GASTON LENZ MD CM:EKGRPT:ELECTROCARDIOGRAM REPORT [id number] GASTON FREY MD
--- NOTE | ~2017-08-18 | PR ---
[place], [place] PROGRESS NOTE NAME: [id number] UNIT #: [id number] ROOM: 410 DOCTOR: MADELYN MARTINEZ MD BIRTHDATE: [birth year] DOS: 08/20/2017 SUBJECTIVE: The patient is more alert and awake, but still quite confused. PHYSICAL EXAMINATION: GENERAL APPEARANCE: The patient is alert and oriented x 3, in no visible distress. VITAL SIGNS: Blood pressure 152/70, heart rate of 72 beats per minute, breathing 20 times per minute, temperature 98 degrees Fahrenheit. HEENT AND NECK: Exam other than mental confusion. CARDIOVASCULAR SYSTEM: Heart rate is regular in rate and rhythm. S1 and S2 normally audible. LUNGS: Clear to auscultation. ABDOMEN: Soft, nontender. No obvious organomegaly. Bowel sounds are present. EXTREMITIES: Without significant cyanosis or edema. NEUROLOGIC: Mental confusion. IMPRESSION AND PLAN: 1. The patient's left lower lobe pneumonia, continue to treatment with antibiotics. The patient is being followed closely. 2. Severe hypoxemia, improving with treatment related to pneumonia. 3. Stage 4 chronic kidney failure, stable. 4. Benign essential hypertension, blood pressure is being treated and controlled. 5. Benign essential hypertension with elevated blood pressures improved after dose of Norvasc was increased. 6. Chronic diastolic type congestive heart failure, compensated. 7. Delirium and mental confusion is being followed closely. Blood cultures and urine cultures have been negative. MADELYN MARTINEZ MD CM:PNTRANS [id number] MADELYN MARTINEZ MD 08/21/17 0148 interface
[~2017-08-18 01:55] MED LIST changes: +AMOXICILLIN500 M2 PO; +DUONEB 3 MG/3 ML3 M1 INH; +FLEET ENEMA 13133 ML R; +LANTUS SOL100 UNIT/1 SQ; +LASIX20 MG PO; +MIRTAZAPINE7.5 MG PO; +NS 0.9% IV; +SUPPOSITORY1 EACH R
[2017-08-18 02:54] LABS: HEMATOCRIT 27.8 % (37.0-47.0); HEMOGLOBIN 8.5 g/dl (12.0-16.0); MEAN CORPUSCULAR HGB 27.5 pg (27.0-31.0); MEAN CORPUSCULAR HGB CONC 30.6 g/dl (33.0-37.0); PLATELET COUNT AUTOMATED 137 10*3/uL (130-400); RED BLOOD COUNT 3.09 10*6/uL (4.10-5.10); RED CELL DISTRI WIDTH 16.3 % (0-14.5); WHITE BLOOD COUNT 18.9 10*3/uL (4.8-10.8)
[2017-08-18 03:08] LABS: ALBUMIN 2.4 gm/dl (3.1-4.5); CREATININE 1.83 mg/dL (0.55-1.02); POTASSIUM 4.8 mmol/L (3.5-5.1); TOTAL PROTEIN 6.6 gm/dL (6.4-8.2)
[2017-08-18 03:10] LABS: TROPONIN I 0.02 ng/ml (<0.045)
[2017-08-18 03:13] LABS: PLATELET SUFFICIENCY NORMAL (NORMAL); TOTAL CELLS COUNTED 100 #CELLS
[2017-08-18 03:14] LABS: POLYCHROMASIA SLIGHT
[2017-08-18 03:15] LABS: THYROID STIM HORMONE (HS) 4.9 uIU/ml (0.358-4.75)
[2017-08-18 03:39] LABS: BILIRUBIN NEGATIVE (NEGATIVE); BLOOD NEGATIVE (NEGATIVE); CLARITY CLOUDY (CLEAR); COLOR YELLOW (YELLOW); GLUCOSE NEGATIVE (NEGATIVE); KETONE NEGATIVE (NEGATIVE); LEUKO ESTERASE NEGATIVE (NEGATIVE); NITRITE NEGATIVE (NEGATIVE); PH 5.5 (5.0-9.0); UROBILINOGEN 0.2 E.U./dl (0.2-1.0)
[2017-08-18 03:51] LABS: BACTERIA 4+
[2017-08-18] MEDS ORDERED: AMLODIPINE BESYL5 MG PO (04:42)
[2017-08-18] MEDS ORDERED: HALDOL5 MG/1 ML IJ (04:45)
[2017-08-18] MEDS ORDERED: HALOPERIDOL1 MG PO (04:47)
[2017-08-18 06:53] LABS: BASO # 0.1 10*3/uL (0.0-0.1); BASO % 0.3 % (0.0-1.0); EOS % 0.2 % (1.0-4.0); HEMATOCRIT 29.9 % (37.0-47.0); HEMOGLOBIN 8.7 g/dl (12.0-16.0); LYMPH # 1.2 10*3/uL (1.3-4.4); LYMPH % 7.2 % (27.0-41.0); MEAN CELL VOLUME 92.6 fl (81.0-99.0); MEAN CORPUSCULAR HGB 26.9 pg (27.0-31.0); MEAN CORPUSCULAR HGB CONC 29.1 g/dl (33.0-37.0); MEAN PLATELET VOLUME 10.4 fl (9.6-12.3); MONO # 0.5 10*3/uL (0.1-1.0); MONO % 3.1 % (3.0-9.0); NEUT # 14.3 10*3/uL (2.3-7.9); NEUT % 88.7 % (47.0-73.0); PLATELET COUNT AUTOMATED 141 10*3/uL (130-400); RED BLOOD COUNT 3.23 10*6/uL (4.10-5.10); RED CELL DISTRI WIDTH 16.2 % (0-14.5); WHITE BLOOD COUNT 16.1 10*3/uL (4.8-10.8)
[2017-08-18 07:24] LABS: POTASSIUM 5.5 mmol/L (3.5-5.1)
[2017-08-18 07:34] LABS: ALBUMIN 2.6 gm/dl (3.1-4.5); CREATININE 1.89 mg/dL (0.55-1.02)
[2017-08-18 15:43] LABS: CKMB 1.5 ng/ml (0.5-3.6); CPK 21 U/L (26-192)
[2017-08-18 15:46] LABS: TROPONIN I < 0.015 ng/ml (<0.045)
[2017-08-18 18:51] LABS: CKMB 1.6 ng/ml (0.5-3.6)
[2017-08-18 21:39] LABS: CKMB 2.2 ng/ml (0.5-3.6)
[2017-08-19] VITALS: BP 186/60
[2017-08-19 06:00] LABS: BASO % 0.4 % (0.0-1.0); EOS # 0.1 10*3/uL (0.0-0.4); EOS % 1.3 % (1.0-4.0); HEMOGLOBIN 8.1 g/dl (12.0-16.0); LYMPH # 1.2 10*3/uL (1.3-4.4); LYMPH % 14.5 % (27.0-41.0); MEAN CELL VOLUME 90.6 fl (81.0-99.0); MEAN CORPUSCULAR HGB 27.2 pg (27.0-31.0); MEAN PLATELET VOLUME 9.7 fl (9.6-12.3); MONO # 0.7 10*3/uL (0.1-1.0); MONO % 8.3 % (3.0-9.0); NEUT # 6.3 10*3/uL (2.3-7.9); NEUT % 74.8 % (47.0-73.0); PLATELET COUNT AUTOMATED 131 10*3/uL (130-400); RED BLOOD COUNT 2.98 10*6/uL (4.10-5.10); RED CELL DISTRI WIDTH 16.6 % (0-14.5); WHITE BLOOD COUNT 8.4 10*3/uL (4.8-10.8)
[2017-08-19 06:34] LABS: CREATININE 1.98 mg/dL (0.55-1.02); POTASSIUM 4.8 mmol/L (3.5-5.1)
[2017-08-19 08:00] VITALS: BP 160/64
[2017-08-19 12:00] VITALS: BP 149/52
[2017-08-19 16:00] VITALS: BP 185/55
[2017-08-19 18:00] VITALS: BP 180/72
[2017-08-19 20:00] VITALS: BP 154/53
[2017-08-20] VITALS: BP 162/78
[2017-08-20 06:28] LABS: BASO % 0.5 % (0.0-1.0); EOS # 0.1 10*3/uL (0.0-0.4); EOS % 1.5 % (1.0-4.0); HEMATOCRIT 26.2 % (37.0-47.0); HEMOGLOBIN 7.8 g/dl (12.0-16.0); LYMPH # 1.2 10*3/uL (1.3-4.4); LYMPH % 13.2 % (27.0-41.0); MEAN CORPUSCULAR HGB 27.1 pg (27.0-31.0); MEAN CORPUSCULAR HGB CONC 29.8 g/dl (33.0-37.0); MONO # 0.7 10*3/uL (0.1-1.0); MONO % 8.5 % (3.0-9.0); NEUT # 6.6 10*3/uL (2.3-7.9); PLATELET COUNT AUTOMATED 133 10*3/uL (130-400); RED BLOOD COUNT 2.88 10*6/uL (4.10-5.10); RED CELL DISTRI WIDTH 16.9 % (0-14.5); WHITE BLOOD COUNT 8.7 10*3/uL (4.8-10.8)
[2017-08-20 06:49] LABS: CREATININE 2.04 mg/dL (0.55-1.02); POTASSIUM 4.9 mmol/L (3.5-5.1)
[2017-08-20 08:00] VITALS: BP 171/46
[2017-08-20 16:00] VITALS: BP 152/70
[2017-08-20 20:00] VITALS: BP 156/50
[2017-08-21 00:22] VITALS: BP 154/64
[2017-08-21 06:19] LABS: BASO % 0.4 % (0.0-1.0); EOS # 0.2 10*3/uL (0.0-0.4); EOS % 2.2 % (1.0-4.0); HEMATOCRIT 24.9 % (37.0-47.0); HEMOGLOBIN 7.4 g/dl (12.0-16.0); LYMPH # 1.7 10*3/uL (1.3-4.4); LYMPH % 21.3 % (27.0-41.0); MEAN CELL VOLUME 90.5 fl (81.0-99.0); MEAN CORPUSCULAR HGB 26.9 pg (27.0-31.0); MEAN CORPUSCULAR HGB CONC 29.7 g/dl (33.0-37.0); MEAN PLATELET VOLUME 10.2 fl (9.6-12.3); MONO # 0.8 10*3/uL (0.1-1.0); MONO % 9.5 % (3.0-9.0); NEUT # 5.3 10*3/uL (2.3-7.9); NEUT % 66.2 % (47.0-73.0); PLATELET COUNT AUTOMATED 134 10*3/uL (130-400); RED BLOOD COUNT 2.75 10*6/uL (4.10-5.10); RED CELL DISTRI WIDTH 16.5 % (0-14.5)
[2017-08-21 06:36] LABS: CREATININE 2.15 mg/dL (0.55-1.02); POTASSIUM 4.6 mmol/L (3.5-5.1)
[2017-08-21 08:00] VITALS: BP 143/93
[2017-08-21 12:00] VITALS: BP 155/67
[2017-08-21 16:00] VITALS: BP 142/43
[2017-08-21] MEDS ORDERED: AMLODIPINE BESY10 MG PO (18:29)
[2017-08-21] MEDS ORDERED: LEVOFLOXACIN500 MG PO (18:43)
== END 2017-08-21 10:53 | DRG 291 ==
LOC: ED 01:55 → 4E 03:36 → EDHOLD 03:36 → 4E 03:55
PROVIDERS: Emergency Medicine Emergency Medical Services; Internal Medicine; Internal Medicine Gastroenterology
DX: I13.0 Hypertensive heart and chronic kidney disease with heart failure and stage 1 through stage 4 chronic kidney disease, or unspecified chronic kidney disease (principal); J18.1 Lobar pneumonia, unspecified organism; E43 Unspecified severe protein-calorie malnutrition; G93.41 Metabolic encephalopathy; E11.22 Type 2 diabetes mellitus with diabetic chronic kidney disease; E11.649 Type 2 diabetes mellitus with hypoglycemia without coma; E87.5 Hyperkalemia; I50.33 Acute on chronic diastolic (congestive) heart failure; N18.4 Chronic kidney disease, stage 4 (severe); J84.10 Pulmonary fibrosis, unspecified; R62.7 Adult failure to thrive; Z66 Do not resuscitate; Z51.5 Encounter for palliative care; H91.90 Unspecified hearing loss, unspecified ear; F02.80 Dementia in other diseases classified elsewhere, unspecified severity, without behavioral disturbance, psychotic disturbance, mood disturbance, and anxiety; G30.1 Alzheimer's disease with late onset; Z88.8 Allergy status to other drugs, medicaments and biological substances; Z79.899 Other long term (current) drug therapy; Z87.440 Personal history of urinary (tract) infections; Z90.710 Acquired absence of both cervix and uterus